=== PATIENT | male | born 1945 | race Caucasian/White ===

== ENCOUNTER 2016-11-13 07:54 | Day surgery (SDC) | payer MEDICARE, BC ==
[~2016-11-13 07:54] MED LIST: EPINEPHrine 1:10,000 1 MG/10 ML Syringe ONE; Midazolam 1 MG/ML 2 ML SDV ONE; Propofol 200 MG/20 ML SDV ONE; fentaNYL 100 MCG/2 ML SDV ONE
[2016-11-13] MEDS ORDERED: Lactated Ringers 1,000 ML IV SCH (08:00)
[2016-11-13] MEDS ORDERED: Sodium Chloride 0.9% 5 ML Syringe FLUSH PRN (08:00)
[2016-11-13] MEDS ORDERED: Propofol 200 MG/20 ML SDV ONE ×2 (08:11→08:49)
[2016-11-13] MEDS ORDERED: Midazolam 1 MG/ML 2 ML SDV ONE (08:49)
[2016-11-13] MEDS ORDERED: fentaNYL 100 MCG/2 ML SDV ONE (08:49)
--- NOTE | 2016-11-13 09:51 | PCM.OPNOTE ---
- General Post-Op/Procedure Note Date of Surgery/Procedure: 11/13/16 Operative Procedure(s): Colonoscopy with polypectomies x4, 2 polyps in the transverse colon and 2 in the ascending colon. Anesthesia Technique: MAC Primary Surgeon: Perlita Fox Complications: None Condition: Good Free Text/Narrative:: INFORMED CONSENT: Patient is here today for elective colonoscopy. All aspects of this procedure have been discussed with the patient. All possible complications also, including possibility of perforation, infection, pain, bleeding and unknown complications. In the event of perforation patient may need to have abdominal exploration, colon resection, colostomy and even was discussed. Anesthetic complications were handled by anesthesia department. The patient understands fully well. Patient did not have any further questions for me at the end of my interview. The patient wishes for me to proceed. PREOPERATIVE DIAGNOSIS/INDICATIONS: [screening] POSTOPERATIVE DIAGNOSIS: [4 polyps identified 2 in the transverse colon and 2 in the descending colon by the cecum. multiple diverticuli seen in the sigmoid colon and the descending colon.] INSTRUMENT USED: Olympus videocolonoscope. ASA CLASSIFICATION: [2] ANESTHESIA: Continuous EKG, oximetry and intermittent blood pressure and respiratory monitoring were performed throughout the procedure. IV Versed and Fentanyl were administered. PROCEDURE PERFORMED: Colonoscopy POSITIONS OF PATIENT: Left lateral. RECTUM: Normal. SIGMOID COLON: Normal. DESCENDING COLON: Normal. SPLENIC FLEXURE: Normal. TRANSVERSE COLON: 2 polyps were identified and removed using the cold biopsy forceps and loop without cautery. HEPATIC FLEXURE: Normal. ASCENDING COLON: 2 polyps were identified and removed using the cold biopsy forceps and a loop doubt cautery. CECUM: Normal. ILEOCECAL VALVE: Normal. BIOPSY: None. TOLERANCE: Excellent. COMPLICATIONS: None. final diagnoses 4 polyps identified 2 in the past as colon and 2 in the ascending colon but the cecum. Multiple diverticuli noted in the sigmoid and descending colon.
[2016-11-13 10:55] VITALS: BP 117/77
== END 2016-11-13 11:20 | disposition home or self-care (01) ==
LOC: KA.SDS 07:54
PROVIDERS: ATTEND Family Medicine
DX: Z12.11 Encounter for screening for malignant neoplasm of colon (principal); D12.2 Benign neoplasm of ascending colon; D12.3 Benign neoplasm of transverse colon; K57.30 Diverticulosis of large intestine without perforation or abscess without bleeding; I25.10 Atherosclerotic heart disease of native coronary artery without angina pectoris; E78.5 Hyperlipidemia, unspecified; Z88.8 Allergy status to other drugs, medicaments and biological substances; Z79.82 Long term (current) use of aspirin; Z79.899 Other long term (current) drug therapy; N40.1 Benign prostatic hyperplasia with lower urinary tract symptoms
CPT/HCPCS: 00810; 45380; J2250; J2704; J3010; J7120; 88305

== ENCOUNTER 2020-07-02 09:36 | Emergency (ER) | payer MEDICARE, BC ==
[2020-07-02] MEDS ORDERED: Nitroglycerin 0.4 MG Tab.SL SL PRN (09:47)
--- NOTE | 2020-07-02 09:49 | EDM.PDOC ---
ED HPI GENERAL MEDICAL PROBLEM - General Chief Complaint: Chest Pain Stated Complaint: CHEST PAIN Time Seen by Provider: 07/02/20 09:36 Source of Information: Reports: Patient - History of Present Illness INITIAL COMMENTS - FREE TEXT/NARRATIVE: Oh, 74-year-old male, presents emergency department per private vehicle after experiencing chest pressure throughout the evening, on and off. States she was able to sleep but chest pressure made it difficult to get to sleep, denying that it woke him up. States when he awoke to go to the bathroom he noted pressure and it was difficult to return to sleep after voiding. Denies any worsening of what is deemed intermittent shortness of breath of a chronic nature. States that he is somewhat inactive due to a bad hip as he is unable to walk very far without discomfort. He denies any fever or chills during this episode. States his pain is 2-3 at this time, never having completely resolved since onset last evening. He is fully compliant with his medications but does not have nitroglycerin. In further discussion during the course of treatment will he admits that he may be had some discomfort Friday night that he attributed to heartburn. Onset Date: 07/01/20 Duration: Hour(s): Location: Reports: Chest Left Chest Pain Score (Numeric/FACES): 5 - Related Data Allergies Allergy/AdvReac Type Severity Reaction Status Date / Time Upixett-Dfz-Ujo Reductase Allergy Muscle Verified 07/02/20 09:54 Inhibitor Aches Home Meds: Home Meds Ascorbic Acid 500 mg PO BEDTIME 11/12/16 [History] Aspirin 81 mg PO BRK 11/12/16 [History] Cholecalciferol (Vitamin D3) [Vitamin D3] 400 units PO DAILY 11/12/16 [History] Finasteride [Proscar] 5 mg PO BEDTIME 11/12/16 [History] Folic Acid 1 mg PO QAM 11/12/16 [History] Methotrexate 10 tab PO ASDIRECTED 11/12/16 [History] Terazosin [Hytrin] 5 mg PO BEDTIME 11/12/16 [History] Glucos Sul 2Kcl/MSM/Chond/C/Mn [Glucosamine Chondroitin Cap] 1 tab PO QAM 07/02/20 [History] polyethylene glycoL 3350 [MiraLAX] 17 gm PO Q2D 07/02/20 [History] Past Medical History HEENT History: Reports: Cataract, Impaired Vision Cardiovascular History: Reports: CAD, High Cholesterol, [place] Respiratory History: Reports: None Gastrointestinal History: Reports: Chronic Constipation, Colon Polyp, Hemorrhoids Genitourinary History: Reports: BPH, Prostate Disorder, Retention, Urinary Musculoskeletal History: Reports: RA, Other (See Below) (Chronic right hip pain which he is not officially) Neurological History: Reports: None Psychiatric History: Reports: None Endocrine/Metabolic History: Reports: Vitamin D Deficiency Hematologic History: Reports: Blood Transfusion(s) Oncologic (Cancer) History: Reports: Basal Cell Carcinoma - Infectious Disease History Infectious Disease History: Reports: Chicken Pox, Mumps - Past Surgical History Cardiovascular Surgical History: Reports: Coronary Artery Bypass GI Surgical History: Reports: Colonoscopy, Hernia, Abdominal Dermatological Surgical History: Reports: Other (See Below) (Biopsy) Social & Family History - Family History Family Medical History: No Pertinent Family History - Tobacco Use Tobacco Use Status *Q: Current Every Day Tobacco User Tobacco Use Within Last Twelve Months: Cigarettes Packs/Tins Daily: 1 Used Tobacco, but Quit: No Smoking Cessation Information Provided To Patient: No - Caffeine Use Caffeine Use: Reports: Coffee ED ROS GENERAL - Review of Systems Review Of Systems: Comprehensive ROS is negative, except as noted in HPI. Constitutional: Reports: No Symptoms Respiratory: Reports: Shortness of Breath Cardiovascular: Reports: Chest Pain ED EXAM, GENERAL - Physical Exam Exam: See Below Free Text/Narrative:: Alert, oriented, reading his pain as a possible 78 pointing to the left chest wall between the nipple and the sternum. HEENT negative to discharge or deformity, there is no tenderness. Moist oral membranes with strong odor of smoking product and poor dentition. Neck is soft supple no lymphadenopathy I do not appreciate JVD nor carotid bruit. No nuchal rigidity is noted. Thorax is raspy I attribute to his smoking habituation with no wheezes nor crackles. He is mildly diminished on the left in comparison to the right. Cardiac is S1-S2 there is no occasional ectopic beat/pause with a grade 1/6 systolic murmur nonradiating. Scars to the chest wall from his CABG and also horizontal incision from his abdominal surgery. Abdomen is soft bowel sounds are present I do not appreciate any megaly nor any tenderness to palpation. Chronic discomfort right hip minimal when supine. There is minimal if any edema to the lower extremities with skin warm and dry. -rectal deferred. #1 Interpretation EKG Date: 07/02/20 Time: 09:44 Rhythm: NSR Rate (Beats/Min): 65 Montgomery: LAD-Left Montgomery Deviation QRS: RBBB ST-T: Normal QT: Prolonged Comparison: Change From Previous EKG Course - Vital Signs Last Recorded V/S: Last Vital Signs Temp 36.1 C 07/02/20 16:36 Pulse 78 07/02/20 16:36 Resp 16 07/02/20 16:36 BP 115/75 07/02/20 16:36 Pulse Ox 98 07/02/20 16:36 - Orders/Labs/Meds Orders: Active Orders 24 hr Category Date Time Status EKG Documentation Completion [RC] ASDIRECTED Care 07/02/20 09:42 Active Peripheral IV Care [RC] . DIRECTED Care 07/02/20 11:04 Ordered Peripheral IV Care [RC] . DIRECTED Care 07/02/20 11:05 Ordered Heparin Sodium Med 07/02/20 10:53 Ordered 4,000 units IVPUSH .BOLUS PRN Heparin Sodium/D5W 250 ml Med 07/02/20 11:15 Ordered IV TITRATE Nitroglycerin 25 MG in D5W @ 10 MCG/MIN (250ml) Premix Med 07/02/20 11:15 Ordered Nitroglycerin/D5W [Nitroglycerin 50 MG/D5W 250 ML] 50 mg in 250 ml IV TITRATE Nitroglycerin [Nitrostat] Med 07/02/20 09:47 Active 0.4 mg SL Q5M PRN Sodium Chloride 0.9% [Normal Saline] 50 ml Med 07/02/20 11:00 Active IV ASDIRECTED Sodium Chloride 0.9% [Saline Flush] Med 07/02/20 11:04 Ordered 10 ml FLUSH Q8HR PRN Sodium Chloride 0.9% [Saline Flush] Med 07/02/20 11:04 Ordered 10 ml FLUSH Q8HR PRN Peripheral IV Insertion Adult [OM.PC] Routine Oth 07/02/20 11:04 Ordered Peripheral IV Insertion Adult [OM.PC] Routine Oth 07/02/20 11:04 Ordered EKG 12 Lead [EK] Urgent Ther 07/02/20 09:42 Ordered Medication Orders Heparin Sodium (Porcine) (Heparin Sodium) 4,000 units IVPUSH .BOLUS PRN PRN Reason: Chest Pain Last Admin: 07/02/20 11:06 Dose: 4,000 units Documented by: RUBEN Sodium Chloride (Normal Saline) 50 mls @ 200 mls/min IV ASDIRECTED [facility] Last Admin: 07/02/20 11:33 Dose: 200 mls/min Documented by: SANDRO Nitroglycerin/Dextrose (Nitroglycerin 50 Mg/D5w 250 Ml) 50 mg in 250 mls @ 3 mls/hr IV TITRATE JOSE FRANCISCO Last Admin: 07/02/20 11:32 Dose: 5 mcg/min, 1.5 mls/hr Documented by: RUBEN Heparin Sodium/Dextrose () 250 mls @ 12.356 mls/hr IV TITRATE JOSE FRANCISCO Last Admin: 07/02/20 11:11 Dose: 12 units/kg/hr, 12.356 mls/hr Documented by: RUBEN Cosigned by: ANICETO Nitroglycerin (Nitrostat) 0.4 mg SL Q5M PRN PRN Reason: Chest Pain Stop: 07/03/20 09:47 Last Admin: 07/02/20 09:53 Dose: 0.4 mg Documented by: RUBEN Sodium Chloride (Saline Flush) 10 ml FLUSH Q8HR PRN PRN Reason: keep vein open Sodium Chloride (Saline Flush) 10 ml FLUSH Q8HR PRN PRN Reason: keep vein open Labs: Laboratory Tests 07/02/20 07/02/20 07/02/20 Range/Units 10:00 10:00 10:00 WBC 8.38 (5.00-10.00) 10^3/uL RBC 4.37 L (4.50-6.00) 10^6/uL Hgb 15.0 (13.0-17.0) g/dL Hct 43.9 (40.0-52.0) % MCV 100.5 H (82.0-92.0) fL MCH 34.3 H (27.0-31.0) pg MCHC 34.2 (32.0-36.0) g/dL RDW 13.6 (11.5-14.5) % Plt Count 225 (150-400) 10^3/uL MPV 9.8 (7.4-10.4) fL Immature Gran % (Auto) 0.2 (0.0-5.0) % Neut % (Auto) 70.8 H (50.0-70.0) % Lymph % (Auto) 17.2 L (20.0-40.0) % [place] % (Auto) 10.5 H (2.0-8.0) % Eos % (Auto) 0.8 L (1.0-3.0) % Baso % (Auto) 0.5 (0.0-1.0) % Neut # (Auto) 5.93 (2.50-7.00) 10^3/uL Lymph # (Auto) 1.44 (1.00-4.00) 10^3/uL Marathon # (Auto) 0.88 H (0.10-0.80) 10^3/uL Eos # (Auto) 0.07 L (0.10-0.30) 10^3/uL Baso # (Auto) 0.04 (0.00-0.10) 10^3/uL Immature Gran # (Auto) 0.02 (0.00-0.50) 10^3/uL APTT 27.1 (22.8-31.4) SEC D-Dimer, Quantitative (<400) ng/mL Sodium 136 (136-145) mmol/L Potassium 4.1 (3.3-5.3) mmol/L Chloride 101 (98-115) mmol/L Carbon Dioxide 23.9 (21.0-32.0) mmol/L Anion Gap 15.2 H (5-15) mmol/L BUN 12 (6-25) mg/dL Creatinine 0.76 (0.51-1.17) mg/dL Est Cr Clr Drug Dosing 93.60 mL/min Estimated GFR (MDRD) > 60 mL/min Glucose 99 (75 - 99) mg/dL Calcium 9.8 (8.7-10.3) mg/dL Total Bilirubin 0.4 (0.2-1.0) mg/dL AST 36 (15-37) U/L ALT 26 (12-78) U/L Alkaline Phosphatase 75 (46-116) IU/L Creatine Kinase 203 (26-276) U/L CK-MB (CK-2) 32.10 H* (0.00-4.30) ng/mL Troponin I 2.21 H* (0.00-0.070) ng/mL B-Natriuretic Peptide 93 (0-100) pg/mL Total Protein 6.6 (6.4-8.2) g/dL Albumin 3.47 (3.00-4.80) g/dL 07/02/20 07/02/20 07/02/20 Range/Units 10:00 16:10 16:10 WBC (5.00-10.00) 10^3/uL RBC (4.50-6.00) 10^6/uL Hgb (13.0-17.0) g/dL Hct (40.0-52.0) % MCV (82.0-92.0) fL MCH (27.0-31.0) pg MCHC (32.0-36.0) g/dL RDW (11.5-14.5) % Plt Count (150-400) 10^3/uL MPV (7.4-10.4) fL Immature Gran % (Auto) (0.0-5.0) % Neut % (Auto) (50.0-70.0) % Lymph % (Auto) (20.0-40.0) % Marathon % (Auto) (2.0-8.0) % Eos % (Auto) (1.0-3.0) % Baso % (Auto) (0.0-1.0) % Neut # (Auto) (2.50-7.00) 10^3/uL Lymph # (Auto) (1.00-4.00) 10^3/uL Marathon # (Auto) (0.10-0.80) 10^3/uL Eos # (Auto) (0.10-0.30) 10^3/uL Baso # (Auto) (0.00-0.10) 10^3/uL Immature Gran # (Auto) (0.00-0.50) 10^3/uL APTT 57.8 H* D (22.8-31.4) SEC D-Dimer, Quantitative 547 H (<400) ng/mL Sodium (136-145) mmol/L Potassium (3.3-5.3) mmol/L Chloride (98-115) mmol/L Carbon Dioxide (21.0-32.0) mmol/L Anion Gap (5-15) mmol/L BUN (6-25) mg/dL Creatinine (0.51-1.17) mg/dL Est Cr Clr Drug Dosing mL/min Estimated GFR (MDRD) mL/min Glucose (75 - 99) mg/dL Calcium (8.7-10.3) mg/dL Total Bilirubin (0.2-1.0) mg/dL AST (15-37) U/L ALT (12-78) U/L Alkaline Phosphatase (46-116) IU/L Creatine Kinase (26-276) U/L CK-MB (CK-2) (0.00-4.30) ng/mL Troponin I 5.40 H* (0.00-0.070) ng/mL B-Natriuretic Peptide (0-100) pg/mL Total Protein (6.4-8.2) g/dL Albumin (3.00-4.80) g/dL Meds: Medications Generic Name Dose Route Start Last Admin Trade Name Freq PRN Reason Stop Dose Admin Heparin Sodium (Porcine) 4,000 units 07/02/20 10:53 07/02/20 11:06 Heparin Sodium IVPUSH 4,000 units .BOLUS PRN Administration Chest Pain Sodium Chloride 50 mls @ 200 mls/min 07/02/20 11:00 07/02/20 11:33 Normal Saline IV 200 mls/min ASDIRECTED JOSE FRANCISCO Administration Nitroglycerin/Dextrose 50 mg in 250 mls @ 3 mls/hr 07/02/20 11:15 07/02/20 11:32 Nitroglycerin 50 Mg/D5w 250 Ml IV 5 mcg/min TITRATE JOSE FRANCISCO 1.5 mls/hr Administration 10 MCG/MIN Heparin Sodium/Dextrose 250 mls @ 12.356 mls/hr 07/02/20 11:15 07/02/20 11:11 IV 12 units/kg/hr TITRATE JOSE FRANCISCO 12.356 mls/hr Administration 12 UNITS/KG/HR Nitroglycerin 0.4 mg 07/02/20 09:47 07/02/20 09:53 Nitrostat SL 07/03/20 09:47 0.4 mg Q5M PRN Administration Chest Pain Sodium Chloride 10 ml 07/02/20 11:04 Saline Flush FLUSH Q8HR PRN keep vein open Sodium Chloride 10 ml 07/02/20 11:04 Saline Flush FLUSH Q8HR PRN keep vein open Discontinued Medications Generic Name Dose Route Start Last Admin Trade Name Rukhsana PRN Reason Stop Dose Admin Heparin Sodium/Dextrose 250 mls @ 1,235.58 mls/hr 07/02/20 11:00 IV TITRATE JOSE FRANCISCO 1,200 UNITS/KG/HR Iopamidol 100 ml 07/02/20 10:47 07/02/20 11:33 Isovue-370 (76%) IV 07/02/20 10:48 75 ml ONETIME ONE Administration - Radiology Interpretation Free Text/Narrative:: 1 view chest shows sternotomy wires and a overall haziness to the left side of the chest in comparison to the right. No acute infiltrate is noted with somewhat flat appearing diaphragms consistent with COPD. Over read pending - Re-Assessments/Exams Free Text/Narrative Re-Assessment/Exam: 07/02/20 10:36 Hypertensive on arrival became mildly hypotensive during the administration of 0.4 sublingual nitroglycerin. Reviewed now blood pressure is trended upward mildly hypertensive systolically with pressure/pain 1 on a scale of 10 at this time. He is resting comfortably awaiting return of laboratory analysis. Had taken ASA this am 07/02/20 11:00 In the discussion with Oh on his findings and the need for further evaluation and treatment, he acknowledges that he may be had some chest pressure Friday night as well attributing that to indigestion. Friday he consumed 6 or 7 drinks rum and coke as well as eating some beef jerky and preservative type food along with seafood. I did inform him of the need of hospitalization for the treatment of this and that we would be contacting appropriate services pending the outcome of the CT scan with contrast of the chest. 07/02/20 12:11 Free Text/Narrative Re-Assessment/Exam: 07/02/20 13:06 Oh is pain-free at this time with a heart rate 80 and regular saturations 99% respiratory rate of 15 and a blood pressure of 126/80. Heparin drip continues and nitroglycerin was titrated up to 10 mics and vitals are holding stable. We are awaiting room assignment at [facility]. 07/02/20 13:07 07/02/20 14:07 Resting comfortably with eyes closed. Respiratory rate 16 with a heart rate of 86 and regular saturations 97% blood pressure 118/76. Awaiting room assignment for the transfer to [facility]. 07/02/20 15:13 Received phone call from [facility]. Room assignment given but yet is not ready to accept patient. Will be advised when report is called as to time we can contact ambulance for transport. Resting comfortably heart rate 69 beats and regular saturation 98% on 2 L nasal cannula, respiratory rate at this time is 11, with a blood pressure of 116/80. 07/02/20 15:36 Report called by nursing staff to [facility]. We are still unable to initiate the physical transfer as bed space has not been confirmed. Secondary of the timing from onset of laboratory analysis and treatment, we will repeat troponin I at this time. We will also obtain current PTT as he has been on the heparin drip now approaching 5 hours. Since we have not been given a release time the 6-hour PTT would come do while in route for the hour and a half transport time to [place]. 07/02/20 17:18 Contact with [facility] hospitalist Dr. Junior advising him of the increase in troponin as well as the PTT being slightly subtherapeutic at the current 12units/kg/h. 1500 unit heparin bolus will be given at this time followed by an increase of the heparin drip to 14 units/kg/h. [facility] paper handler is advised of this change, with no other changes in previous orders. Departure - Departure Time of Disposition: 12:09 Disposition: DC/Tfer to Acute Hospital 02 Condition: Fair Clinical Impression: Acute coronary syndrome, Chest pain at rest, Chronic right hip pain, Elevated troponin I level, AAA (abdominal aortic aneurysm) without rupture, Rheumatoid arthritis, Elevated brain natriuretic peptide (BNP) level - Discharge Information *PRESCRIPTION DRUG MONITORING PROGRAM REVIEWED*: Not Applicable *COPY OF PRESCRIPTION DRUG MONITORING REPORT IN PATIENT EDIN: Not Applicable Referrals: Brit Jaramillo MD [Primary Care Provider] - Forms: ED Department Discharge, Interfacility Transfer EMTALA Additional Instructions: Discussed case with [facility] [address] [facility] via [place] [facility] ambulance as soon its room is available. Sepsis Event Note (ED) - Focused Exam Vital Signs: Vital Signs Temp Pulse Resp BP BP Pulse Ox 07/02/20 16:36 36.1 C 78 16 115/75 98 07/02/20 15:57 80 16 117/73 98 07/02/20 14:49 86 16 117/83 98 07/02/20 14:15 80 16 107/75 98 07/02/20 13:24 80 15 129/83 98 07/02/20 12:33 84 14 129/87 99 07/02/20 12:21 36.3 C 88 15 128/74 98 07/02/20 12:14 92 22 H 146/89 H 96 07/02/20 12:01 85 16 152/91 H 97 07/02/20 11:45 63 16 148/84 H 96 07/02/20 11:30 64 14 168/82 H 97 07/02/20 11:15 82 16 133/83 97 07/02/20 11:00 122/88 07/02/20 10:45 72 16 136/83 97 07/02/20 10:30 85 16 137/78 96 07/02/20 10:15 88 111/86 07/02/20 10:04 35.8 C L 80 18 159/128 H 97 07/02/20 10:03 92 99/65 07/02/20 09:55 84/59 L 07/02/20 09:53 164/87 H - Problem List & Annotations (1) Chest pain at rest SNOMED Code(s): 7065636 Code(s): R07.9 - CHEST PAIN, UNSPECIFIED Status: Acute Priority: High Current Visit: Yes (2) AAA (abdominal aortic aneurysm) without rupture SNOMED Code(s): 49348558 Code(s): I71.4 - ABDOMINAL AORTIC ANEURYSM, WITHOUT RUPTURE Status: Chronic Priority: Medium Current Visit: Yes (3) Rheumatoid arthritis SNOMED Code(s): 00152055 Code(s): M06.9 - RHEUMATOID ARTHRITIS, UNSPECIFIED Status: Chronic Priority: Medium Current Visit: Yes Qualifiers: Rheumatoid arthritis location: hand (4) Elevated troponin I level SNOMED Code(s): 795956423 Code(s): R77.8 - OTHER SPECIFIED ABNORMALITIES OF PLASMA PROTEINS Status: Acute Priority: High Current Visit: Yes (5) Elevated brain natriuretic peptide (BNP) level SNOMED Code(s): 373280889, 005149480 Code(s): R79.89 - OTHER SPECIFIED ABNORMAL FINDINGS OF BLOOD CHEMISTRY Status: Acute Priority: High Current Visit: Yes (6) Chronic right hip pain SNOMED Code(s): 73296547 Code(s): M25.551 - PAIN IN RIGHT HIP; G89.29 - OTHER CHRONIC PAIN Status: Chronic Priority: Medium Current Visit: Yes - Problem List Review Problem List Initiated/Reviewed/Updated: Yes - My Orders Last 24 Hours: My Active Orders 07/02/20 09:42 EKG Documentation Completion [RC] ASDIRECTED EKG 12 Lead [EK] Urgent 07/02/20 09:47 Nitroglycerin [Nitrostat] 0.4 mg SL Q5M PRN 07/02/20 10:53 Heparin Sodium 4,000 units IVPUSH .BOLUS PRN 07/02/20 11:00 Sodium Chloride 0.9% [Normal Saline] 50 ml IV ASDIRECTED 07/02/20 11:04 Peripheral IV Care [RC] . DIRECTED Sodium Chloride 0.9% [Saline Flush] 10 ml FLUSH Q8HR PRN Sodium Chloride 0.9% [Saline Flush] 10 ml FLUSH Q8HR PRN Peripheral IV Insertion Adult [OM.PC] Routine Peripheral IV Insertion Adult [OM.PC] Routine 07/02/20 11:05 Peripheral IV Care [RC] . DIRECTED 07/02/20 11:15 Heparin Sodium/D5W 250 ml IV TITRATE Nitroglycerin 25 MG in D5W @ 10 MCG/MIN (250ml) Premix Nitroglycerin/D5W [Nitroglycerin 50 MG/D5W 250 ML] 50 mg in 250 ml IV TITRATE - Assessment/Plan Last 24 Hours: My Active Orders 07/02/20 09:42 EKG Documentation Completion [RC] ASDIRECTED EKG 12 Lead [EK] Urgent 07/02/20 09:47 Nitroglycerin [Nitrostat] 0.4 mg SL Q5M PRN 07/02/20 10:53 Heparin Sodium 4,000 units IVPUSH .BOLUS PRN 07/02/20 11:00 Sodium Chloride 0.9% [Normal Saline] 50 ml IV ASDIRECTED 07/02/20 11:04 Peripheral IV Care [RC] . DIRECTED Sodium Chloride 0.9% [Saline Flush] 10 ml FLUSH Q8HR PRN Sodium Chloride 0.9% [Saline Flush] 10 ml FLUSH Q8HR PRN Peripheral IV Insertion Adult [OM.PC] Routine Peripheral IV Insertion Adult [OM.PC] Routine 07/02/20 11:05 Peripheral IV Care [RC] . DIRECTED 07/02/20 11:15 Heparin Sodium/D5W 250 ml IV TITRATE Nitroglycerin 25 MG in D5W @ 10 MCG/MIN (250ml) Premix Nitroglycerin/D5W [Nitroglycerin 50 MG/D5W 250 ML] 50 mg in 250 ml IV TITRATE Plan: Discussed case with [facility] [address] [facility] via [place] [facility] ambulance as soon its room is available
[2020-07-02 10:37] LABS: ANION GAP 15.2 mmol/L (5-15); CHLORIDE,CL 101 mmol/L (98-115); SODIUM,NA 136 mmol/L (136-145)
[2020-07-02] MEDS ORDERED: Iopamidol 755 Mg/ML 100 ML Bottle IV ONE (10:47)
[2020-07-02] MEDS ORDERED: Heparin Sodium 5,000 Units/ML Vial IVPUSH PRN (10:53)
[2020-07-02] MEDS ORDERED: Sodium Chloride 0.9% 50 ML IV SCH (11:00)
[2020-07-02] MEDS ORDERED: Heparin Sodium/D5W 250 ML IV SCH ×3 (11:00→17:30)
--- NOTE | 2020-07-02 11:03 | CR ---
[id number] RAD/RAD Chest PA or AP 1V EXAM: SINGLE VIEW CHEST. INDICATION: CHEST PAIN COMPARISON: CORRELATION IS MADE WITH DECEMBER 19, 2011 FINDINGS: The lungs are clear and hyperaerated The cardiomediastinal contour is stable Median sternotomy sutures are seen IMPRESSION: NO PNEUMONIA OR EDEMA Emile Goncalves MD 07/02/20 [id number] Thank you for allowing us to participate in the care of your patient.
[2020-07-02] MEDS ORDERED: Sodium Chloride 0.9% 10 ML Syringe FLUSH PRN ×2 (11:04)
--- NOTE | 2020-07-02 11:40 | CT ---
[id number] CT/CTA Chest Exam: CTA Chest Clinical Data: SHORTNESS OF BREATH ELEVATED D-DIMER CHEST PAIN COMPARISON: CORRELATION IS MADE WITH JANUARY 22, 2012 FINDINGS: There are no pulmonary emboli seen There are minimal bilateral perihilar parenchymal changes There is peribronchial thickening There are diffuse atheromatous calcifications Cardiac surgical changes are identified IMPRESSION: NO PULMONARY EMBOLI Emile Goncalves MD 07/02/20 [id number] Thank you for allowing us to participate in the care of your patient.
[2020-07-02 17:01] VITALS: BP 136/88; PULSE 93
[2020-07-02] MEDS ORDERED: Heparin Sodium 5,000 Units/ML Vial IVPUSH ONE (17:15)
--- OUTSIDE RECORDS SUMMARY | 2020-07-06 08:08 | XMSREPORT ---
:1945 Author Organization [facility] Address [address] [place] [address] Care Team Providers Name Role Phone Juju Jaramillo MD Primary Care Provider Juju Jaramillo MD Attributed Provider Reason for Referral Comprehensive Primary Care Plus (Routine) Status Reason Specialty Diagnoses / Referred By Referred To Contact Procedures Contact New Request CARDIOLOGY Diagnoses NSTEMI (non-ST elevated myocardial infarction) (HCC) Mukul Reaves go Cardiology Issa Monson MD [address] [place] [phone] Phone: Phone: Scheduling Instructions This is an electronic referral. Reason for Visit Reason Comments Auth/Cert Status Reason Specialty Diagnoses / Procedures Referred By Yamilet coles Referred To Contact Encounter Details Date Type Department Care Team Description 07/02/2020 - [facility] Provider, Generic Hosp Pr ocedure NSTEMI (non-ST 07/04/2020 Encounter CENTER [facility]AB Kim Lopes MD [address] [place] [address] [phone] elevated 5225 23 Mukul Jolly MD [address] [place] [address] [place] [id number] [place] [address] Mayo Salvador MD [address] [place], [place] [id number] infarction) ([facility]) [phone] Allergies Active Allergy Reactions Severity Noted Date Comments Hmg-Coa-R Inhibitors Statin Contraindication - 015 Muscle aches Intolerance documented as of this encounter (statuses as of 07/04/2020) Medications Medication Sig Dispensed Refills Start End Date Status Date ascorbic acid Take 1 tablet by 0 Active (EQL VITAMIN C) mouth 1 time per 500 MG TABS day. vitamin D3, Take 400 Units by 0 Active cholecalciferol, mouth 1 time per 400 unit tablet day. polyethylene Take 1 0 Active glycol (MIRALAX) tablespoonful by powder mouth Every other day Glucosamine-Armando Take 1 capsule by 0 Active droit-Vit C-Mn mouth 1 time per (GLUCOSAMINE-CHO day NDROITIN COMPLEX) capsule finasteride Take 1 tablet (5 90 tablet 3 A ctive (PROSCAR) 5 MG mg) by mouth 1 0 tabletIndication time per day s: Benign non-nodular prostatic hyperplasia with lower urinary tract symptoms folic acid 1 mg Take 1 tablet (1 90 tablet 1 Active tabletIndication mg) by mouth 1 0 s: Rheumatoid time per day arthritis involving both hands with positive rheumatoid factor ([facility]) methotrexate 2.5 Take 10 tablets 120 tablet 1 Active MG (25 mg) by mouth 0 tabletIndication 1 time a week On s: Rheumatoid Mondays. arthritis involving both hands with positive rheumatoid factor ([facility]) terazosin Take 1 capsule (5 90 capsule 3 A ctive (HYTRIN) 5 MG mg) by mouth 0 capsuleIndicatio every night at ns: Benign bedtime non-nodular prostatic hyperplasia with lower urinary tract symptoms carVEDilol Take 1 tablet 180 tablet 4 07/09/20 Acti ve (COREG) 6.25 mg (6.25 mg) by 0 21 tabletIndication mouth 2 times a s: NSTEMI day with meals (non-ST elevated myocardial infarction) ([facility]) clopidogrel Take 1 tablet (75 90 tablet 3 Active (PLAVIX) 75 mg mg) by mouth 1 0 tabletIndication time per day s: NSTEMI (non-ST elevated myocardial infarction) ([facility]) aspirin 81 mg Take 1 tablet (81 30 tablet 12 08/04/20 Active chewable mg) by mouth 1 0 20 tabletIndication time per day s: NSTEMI (non-ST elevated myocardial infarction) ([facility]) rosuvastatin Take 1 tablet (5 30 tablet 12 07/09/20 Active (CRESTOR) 5 mg mg) by mouth 1 0 21 tabletIndication time per day s: NSTEMI (non-ST elevated myocardial infarction) ([facility]) aspirin 81 mg Take 81 mg by 0 07/04/20 Di scontinued chewable tablet mouth 1 time per 2 20 (Stop Taking at day. Discharge) documented as of this encounter (statuses as of 07/04/2020) Active Problems Problem Noted Date History of heart artery stent 07/04/2020 Hypertension 07/04/2020 Atherosclerosis of aorta 07/02/2020 Elevated blood pressure reading 07/02/2020 Acute chest pain 07/02/2020 NSTEMI (non-ST elevated myocardial infarction) 020 Chronic idiopathic constipation 05/29/2019 Vitamin D deficiency 11/24/2018 Abdominal aortic aneurysm (AAA) 07/03/2018 Overview: 07/03/18: 3.2 x 3.1 cm. 06/18/2019: 3.7 x 3.7 cm. Chronic allergic rhinitis 06/10/2018 Benign non-nodular prostatic hyperplasia with lower ur inary tract symptoms 06/10/2018 Obesity with body mass index of 30.0-39.9 06/01/2018 Tubular adenoma of colon 11/13/2016 Basal cell carcinoma of skin 04/16/2016 Rheumatoid arthritis involving both hands with positiv e rheumatoid factor 12/12/2008 Pure hypercholesterolemia 11/13/2004 Tobacco dependence CAD (coronary artery disease) documented as of this encounter (statuses as of 07/04/2020) Resolved Problems Problem Noted Date Resolved Date Ulnar neuropathy at elbow of left upper extremity 06/10/2018 05/29/2019 Lesion of nose 03/28/2016 06/01/2018 Pleural effusion on left 01/23/2015 11/24/2018 Skin lesion 02/24/2014 06/01/2018 Pleural effusion 04/15/2013 01/23/2015 Painful respiration 07/25/2010 01/23/2015 Acute bronchitis 06/08/2010 01/23/2015 Epistaxis 05/16/2010 01/23/2015 Encounter for long-term (current) use of other medications 0 01/11/2009 06/01/2018 Coronary atherosclerosis of [place] coronary artery 06/01/2018 Other constipation 11/24/2018 documented as of this encounter (statuses as of 07/04/2020) Immunizations Name Administration Dates Next Due DT (pediatric) 02/03/2001 FLU VACCINE HIGH DOSE 65YR+(Fluzone) 05/18/2019, 06/01/2018, 08/27/2017, 06/23/2013, 06/04/2012 H1N1 Vaccine W/preservative 3yr+ 06/28/2009 Influenza Vaccine,unspecified 05/09/2020, 06/15/2015, 2013, 05/31/2011, 05/16/2010, 05/18/2009 Pneumococcal Conj PCV13 10/29/2016 Pneumococcal Polysaccharide PPSV23 07/24/2011 TD,not adsorbed 02/03/2001 TDAP 02/02/2014 Zoster Live(Zostavax) 02/02/2014 documented as of this encounter Social History Tobacco Use Types Packs/Day Years Used Date Current Every Day Smoker Cigarettes 1 Smokeless Tobacco: Never Used Alcohol Use Drinks/Week oz/Week Comments Yes 2 Standard drinks or equivalent 1.7 Alcohol Habits Answer Date Recorded How often do you have a drink containing alcohol? 2-3 times a week 07/02/2020 How many drinks containing alcohol do you have on a 3 or 4 07/02/2020 typical day when you are drinking? How often do you have six or more drinks on one Monthly 07/02/2020 occasion? Food Insecurity Answer Date Recorded Within the past 12 months, you worried that your food would Never true 04/03/2020 run out before you got money to buy more. Within the past 12 months, the food you bought just didn't N ever true 04/03/2020 last and you didn't have money to get more. Sex Assigned at Date Recorded Not on file documented as of this encounter Last Filed Vital Signs Vital Sign Reading Time Taken Comments Blood Pressure 129/56 07/04/2020 8:00 AM [employer] Pulse 79 07/04/2020 8:00 AM [employer] Temperature 36.3 C (97.4 F) 07/04/2020 8:00 AM [employer] Respiratory Rate 18 07/04/2020 3:00 AM [employer] Oxygen Saturation 97% 07/04/2020 8:00 AM [employer] Inhaled Oxygen Concentration - - Weight 96.2 kg (212 lb 1.3 oz) 07/02/2020 8:00 PM [employer] Height 180.3 cm (5' 11") 07/02/2020 8:00 PM [employer] Body Mass Index 29.58 07/02/2020 8:00 PM [employer] documented in this encounter Functional Status Functional Status Response Date of Assessment Do you have difficulty with walking, balance, climbing Yes 06/28/2020 stairs, or had a fall in the last 3 months? documented as of this encounter Discharge Summaries Mukul Reaves MD - 07/04/2020 11:19 AM CST Discharge Summary Patient ID: Gabriel Montiel is a 74yr male. Attending Physician: Mukul Reaves MD Discharging Provider Specialty: Adult Hospitalist, Internal Medicine Admit Date: 07/02/2020 Discharge Date: 07/04/2020 Primary Care Physician: Brit Jaramillo MD Code Status: Full Code Primary Discharge Diagnoses NSTEMI (non-ST elevated myocardial infarction) (HCC) Principal Problem: NSTEMI (non-ST elevated myocardial infarction) (HCC) Active Problems: Acute chest pain History of heart artery stent Resolved Problems: * No resolved hospital problems. * NSTEMI type I Hx of CAD s/p CABG Acute chest pain, secondary to above -- S/p C 07/03/2020 significant o[place]e-[place] multivessel CAD - LM(70% Distal), LAD(100% Prox), LCx(100%Prox), RCA(90% Prox, mid). Patent ANDERSON-LAD; Sequential SVG-OM1/OM2 had 70% mid & 90% prox stenosis - s/p PCI with 2 overlapping Laurel [place]ina 2.75*38, 3*38 mm; RAG-RCA had 70% distal stenosis - s/p PCI with a 2.5*12 mm Elder MARILYN. New diagnosis hypertension Discharged on Coreg 6.25 mg twice a day, PCP follow-up in a week. Secondary Discharge Diagnoses Patient Active Problem List Diagnosis Pure hypercholesterolemia Rheumatoid arthritis involving both hands with positive rheumatoid factor (HCC) Tobacco dependence CAD (coronary artery disease) Basal cell carcinoma of skin Obesity with body mass index of 30.0-39.9 Chronic allergic rhinitis Benign non-nodular prostatic hyperplasia with lower urinary tract symptoms Abdominal aortic aneurysm (AAA) ([facility]) Vitamin D deficiency Chronic idiopathic constipation Tubular adenoma of colon Atherosclerosis of aorta ([facility]) Elevated blood pressure reading Acute chest pain NSTEMI (non-ST elevated myocardial infarction) ([facility]) History of heart artery stent Hospital Course Mr. Montiel is a 74-year-old male with history significant for CAD s/p CABG, rheumatoid arthritis, tobacco dependence, obesity, BPH, hypertension, hyperlipidemia [facility]. Patient stated that he has been in his usual state of health until the last couple of days where he noticed acute onset of midsternal chest pain, which felt like intense pressure, rated 8 out of 10, would wax and wane but over the last 24 hours has become sick significantly worse and constant. He has a history of CABG in 2002 or 2003 and the patient stated that he has been doing quite well since then. He is independent with his cares and lives at home with his "lady friend". He initially presented to [facility] and blood pressures were noted to be in the 150s over 120s.He was maintaining adequate saturations on room air. Initial EKG did not show any acute ST changes. CBC showed white count of 8.3, hemoglobin 15, MCV of 100.5 and normal platelet count. CMP showed sodium of 136, potassium 4.1, albumin 12, creatinine of 0.76, normal liver enzymes. Troponin was eleva sharif to 2.21 and repeat troponin was elevated to 5.40. D-dimer was elevated to 547. Chest x-ray didnot show any acute cardiopulmonary process. CT was also completed which showed no pulmonary emboli, however there are diffuse atheromatous calcifications noted. The patient was given aspirin 324 mg. He was started on nitroglycerin and heparin drip and transferred to [place] for higher level of care. Cardiology consulted, he underwent a left heart cath on 07/03/2020 : -- S/p LHC 07/03/2020 significant o[place] multivessel CAD - LM(70% Distal), LAD(100% Prox), LCx(100%Prox), RCA(90% Prox, mid). Patent ANDERSON-LAD; Sequential SVG-OM1/OM2 had 70% mid & 90% prox stenosis - s/p PCI with 2 overlapping Elder Catalina 2.75*38, 3*38 mm; RAG-RCA had 70% distal stenosis - s/p PCI with a 2.5*12 mm Elder MARILYN. Echo completed 07/04/2020 : EF 60%, grade 1 diastolic CHF, no regional wall motion abnormalities. Also his blood pressure has been noted to be elevated, no previous history of hypertension, not on any medication for hypertension, Cardiology recommended to start Coreg, blood pressure has been improving. Today 07/04/2020 Vitals have been stable, labs reviewed with a normal creatinine and electrolytes, he denied any chest pain or shortness of breath, PT recommended patient is safe to go home, patient discharged in a stable medical condition with the following discharge recommendations. Follow up appointments: - PCP in 1 week - Cardiac rehab ordered on discharge. - Cardiology follow up in 3 months. Medication changes: - Continue ASA 81 daily - Start Plavix 75 mg daily - He has history of statin intolerance, I restarted him on Crestor 5 mg daily, PCP to consider increase it to high intensity statin based on tolerance. - Coreg 6.25 mg 2 times a day as new medication, PCP follow-up on blood pressure control, if uncontrolled can consider increase Coreg or add lisinopril. Procedures Performed and Findings * No surgery found * Discharge Exam Vital Signs: Temp: 97.4 F (36.3 C) | BP: 129/56 | Pulse: 79 | Resp: 18 | Pain Ratin (out of 10) | Weight: 96.2 kg (212 lb 1.3 oz) | O2 Device: Room Air | SpO2: 97 % Intake and Output: 07/03 0700 - 07/04 0659 In: 653.5 Out: 425 [Urine:425] Physical Exam Constitutional: Appearance: He is not ill-appearing. HENT: Mouth/Throat: Pharynx: No oropharyngeal exudate. Eyes: General: No scleral icterus. Neck: Musculoskeletal: No neck rigidity. Cardiovascular: Rate and Rhythm: Normal rate and regular rhythm. Heart sounds: No murmur. Pulmonary: Effort: No respiratory distress. Abdominal: General: There is no distension. Musculoskeletal: General: No swelling. Skin: Coloration: Skin is not jaundiced. Neurological: General: No focal deficit present. Mental Status: Mental status is at baseline. Psychiatric: Mood and Affect: Mood normal. Consults CONSULT CARDIOLOGY Discharge Disposition ADULT Discharge Planning: Home (1, 2) Discharge Medications Medication List START taking these medications carVEDilol 6.25 mg tablet Commonly known as: COREG Take 1 tablet (6.25 mg) by mouth 2 times a day with meals clopidogrel 75 mg tablet Commonly known as: PLAVIX Take 1 tablet (75 mg) by mouth 1 time per day Start taking on: July 05, 2020 rosuvastatin 5 mg tablet Commonly known as: CRESTOR Take 1 tablet (5 mg) by mouth 1 time per day CONTINUE taking these medications aspirin 81 mg chewable tablet Take 1 tablet (81 mg) by mouth 1 time per day Start taking on: July 05, 2020 EQL Vitamin C 500 mg tablet Generic drug: ascorbic acid finasteride 5 MG tablet Commonly known as: PROSCAR Take 1 tablet (5 mg) by mouth 1 time per day folic acid 1 mg tablet Take 1 tablet (1 mg) by mouth 1 time per day glucosamine-chondroitin complex capsule methotrexate 2.5 MG tablet Take 10 tablets (25 mg) by mouth 1 time a week On Mondays. polyethylene glycol 17 GM/SCOOP powder Commonly known as: MIRALAX Notes to patient: Take for constipation terazosin 5 MG capsule Commonly known as: HYTRIN Take 1 capsule (5 mg) by mouth every night at bedtime vitamin D3 (cholecalciferol) 400 unit tablet Where to Get Your Medications These [facility] [address] [facility] [place], [place] [address] [address] aspirin 81 mg chewable tablet carVEDilol 6.25 mg tablet clopidogrel 75 mg tablet rosuvastatin 5 mg tablet Discharge Instructions See AVS for discharge instructions. Tests Pending at Discharge Follow-Up Scheduled See AVS for Follow up appointments made Medical Decision Making The time spent on discharge coordination was less than 30 minutes. documented in this encounter Medications at Time of Discharge Medication Sig Dispensed Refills Start Date End Date carVEDilol (COREG) Take 1 tablet (6.25 180 tablet 4 07/04/20 20 07/09/2021 6.25 mg mg) by mouth 2 times a tabletIndications: day with meals NSTEMI (non-ST elevated myocardial infarction) (HCC) clopidogrel (PLAVIX) Take 1 tablet (75 mg) 90 tablet 3 06/18 75 mg by mouth 1 time per tabletIndications: day NSTEMI (non-ST elevated myocardial infarction) (HCC) aspirin 81 mg chewable Take 1 tablet (81 mg) 30 tablet 12 08/04/2020 tabletIndications: by mouth 1 time per NSTEMI (non-ST day elevated myocardial infarction) (HCC) finasteride (PROSCAR) Take 1 tablet (5 mg) 90 tablet 3 06/18 5 MG by mouth 1 time per tabletIndications: day Benign non-nodular prostatic hyperplasia with lower urinary tract symptoms folic acid 1 mg Take 1 tablet (1 mg) 90 tablet 1 06/28/2020 tabletIndications: by mouth 1 time per Rheumatoid arthritis day involving both hands with positive rheumatoid factor (HCC) methotrexate 2.5 MG Take 10 tablets (25 120 tablet 1 020 tabletIndications: mg) by mouth 1 time a Rheumatoid arthritis week On Mondays. involving both hands with positive rheumatoid factor (HCC) terazosin (HYTRIN) 5 Take 1 capsule (5 mg) 90 capsule 3 06/18 MG capsuleIndications: by mouth every night Benign non-nodular at bedtime prostatic hyperplasia with lower urinary tract symptoms Glucosamine-Chondroit- Take 1 capsule by 0 Vit C-Mn mouth 1 time per day (GLUCOSAMINE-CHONDROIT IN COMPLEX) capsule polyethylene glycol Take 1 tablespoonful 0 (MIRALAX) powder by mouth Every other day vitamin D3, Take 400 Units by 0 cholecalciferol, 400 mouth 1 time per day. unit tablet ascorbic acid (EQL Take 1 tablet by mouth 0 VITAMIN C) 500 MG TABS 1 time per day. rosuvastatin (CRESTOR) Take 1 tablet (5 mg) 30 tablet 12 07/09/2021 5 mg by mouth 1 time per tabletIndications: day NSTEMI (non-ST elevated myocardial infarction) (HCC) documented as of this encounter Progress Notes Codie Krueger, PHARM D - 07/03/2020 2:45 PM CST11/ 2:45 PM [employer] -- Patient was seen by the pharmacy med reconciliation team and HOME MEDICATIONS have been reconciled and updated to match the patient's home usage. Codie Krueger, PHARM D [employer] Mukul Reaves MD - 07/03/2020 2:17 PM CST Hospital Progress Note Gabriel Montiel is a 74yr old male admitted on 07/02/2020. Assessment / Plan Principal Problem: NSTEMI (non-ST elevated myocardial infarction) (HCC) Active Problems: Acute chest pain Resolved Problems: * No resolved hospital problems. * NSTEMI likely type I Acute chest pain secondary to above CABG in 2007 Appreciate cardiology recommendations, patient underwent angiogram on July 03, 2020 and had multiple stents placed. Continue aspirin statin and Coreg Echo completed on July 02, 2020.Pending Continue to monitor with telemetry Hyperlipidemia continue statin Uncontrolled hypertension: Cardiology started him on Coreg, added lisinopril. Chronic microcytic anemia probably due to chronic alcohol use discussed with patient about alcohol cessation. folate within normal limits , vitamin B12 pending the results. DVT prophylaxis subcu Lovenox Disposition anticipate discharge tomorrow if continued medically stable HPI / History / ROS HPI Patient underwent coronary angiograms this morning , had multiple stents placed, appreciate cardiology recommendations, denied any chest pain or shortness of breath this morning, will continue to monitor BP today and anticipate discharge tomorrow if continued medically stable. Review of Systems Constitutional: Negative for activity change. HENT: Negative. Respiratory: Positive for shortness of breath. Negative for stridor. Cardiovascular: Negative for chest pain and leg swelling. Genitourinary: Negative. Musculoskeletal: Negative. Skin: Negative. Neurological: Negative. Hematological: Negative. Psychiatric/Behavioral: Negative. Physical / Results Current Vital Signs Temp: 96.9 F (36.1 C) BP: 186/98 Weight: 96.2 kg (212 lb 1.3 oz) SpO2: 97 % Resp: 14 Pulse: 80 Current BMI (>50 = increased risk): 29.59 O2 Device: Room Air Pain Ratin Physical Exam Constitutional: Appearance: He is not ill-appearing. HENT: Nose: No congestion. Eyes: General: No scleral icterus. Cardiovascular: Rate and Rhythm: Normal rate and regular rhythm. Heart sounds: No murmur. Pulmonary: Effort: No respiratory distress. Breath sounds: No wheezing. Abdominal: General: There is no distension. Tenderness: There is no abdominal tenderness. Musculoskeletal: General: No swelling. Skin: Coloration: Skin is not jaundiced. Neurological: General: No focal deficit present. Mental Status: Mental status is at baseline. Psychiatric: Mood and Affect: Mood normal. [employer] documented in this encounter H&P Notes Kim Kurtz MD - 07/02/2020 7:29 PM CST Hospital Admission History and Physical Assessment / Plan NSTEMI type I vs type II Hx of CAD s/p CABG Acute chest pain, secondary to above Chest x-ray did not show any acute cardiopulmonary process. CT was also completed which showed no pulmonary emboli, however there are diffuse atheromatous calcifications noted. His chest pain has resolved since arrival. - Can transition off of nitroglycerin drip and use sublingual nitro as needed. - Continue heparin drip - Continuous oximetry and telemetry - Cardiology consult, appreciate recommendations - Echocardiogram - Daily weights, ins and outs - CBC, CMP, BNP, lipid panel, A1c, troponin, mag - Continue daily aspirin, can start on statin and Coreg tomorrow Hyperlipidemia - repeat LDL - apparently has previous intolerance to statins Macrocytic anemia, likely secondary to alcohol use - discussed alcohol reduction - check folate, B12 Chronic Medical Conditions: Tobacco dependence: cessation was discussed with patient BPH: continue Finasteride and Hytrin AAA Obesity Rheumatoid arthritis: continue methotrexate Chronic right hip pain Code: FULL Diet: Heart Healthy, NPO after midnight DVT prophylaxis: therapeutic HPI / History / ROS HPI Mr. Montiel is a 74-year-old male with history significant for CAD s/p CABG, rheumatoid arthritis, tobacco dependence, obesity, BPH, hypertension, hyperlipidemia [facility] and acute chest pain. Patient states that he has been in his usual state of health until the last couple of days where he noticed acute onset of midsternal chest pain, which felt like intense pressure, rated 8 out of 10, would wax and wane but over the last 24 hours has become sick significantly worse and constant. It is nonradiating and resting did not relieve the pain. In fact, the patient states that he was sitting down watching TV when the pain initially started.He has a history of CABG in 2002 or 2003 and the patient states that he has been doing quite well since then. He is independent with his cares and lives at home with his "lady friend". He had some associated nausea and shortness of breath but otherwise denies any diaphoresis, dizziness, palpitations, lower extremity swelling. No changes to urination or bowel movements. The patient states that he has no known exposures to coronavirus. He has been smoking for 45 years initially around 2 packs a day over the last 10 years has cut down to one pack a day. He drinks 3-4 glasses of rum a day as well. No illicit drug use including marijuana. He initially presented to [facility] and blood pressures were noted to be in the 150s over 120s.He was maintaining adequate saturations on room air. Initial EKG did not show any acute ST changes. CBC showed white count of 8.3, hemoglobin 15, MCV of 100.5 and normal platelet count. CMP showed sodium of 136, potassium 4.1, albumin 12, creatinine of 0.76, normal liver enzymes. Troponin was elevated to 2.21 and repeat troponin was elevated to 5.40. D-dimer was elevated to 547. Chest x-ray didnot show any acute cardiopulmonary process. CT was also completed which showed no pulmonary emboli, however there are diffuse atheromatous calcifications noted. The patient was given aspirin 324 mg. He was started on nitroglycerin and heparin drip and transferred to [place] for higher level of care. Since arrival, the patient no longer has any chest pain. History Prior to Admission Medications Prescriptions Last Dose Informant Patient Reported? Taking? Byarmdyjhli-Ayevtoyft-Rfu C-Mn (GLUCOSAMINE-CHONDROITIN COMPLEX) capsule Yes No Sig: Take 1 capsule by mouth 1 time per day ascorbic acid (EQL VITAMIN C) 500 MG TABS Abstracted Yes No Sig: Take 1 tablet by mouth 1 time per day. aspirin 81 mg chewable tablet Abstracted Yes No Sig: Take 81 mg by mouth 1 time per day. finasteride (PROSCAR) 5 MG tablet No No Sig: Take 1 tablet (5 mg) by mouth 1 time per day folic acid 1 mg tablet No No Sig: Take 1 tablet (1 mg) by mouth 1 time per day methotrexate 2.5 MG tablet No No Sig: Take 10 tablets (25 mg) by mouth 1 time a week On Mondays. polyethylene glycol (MIRALAX) powder Yes No Sig: Take 1 tablespoonful by mouth Every other day terazosin (HYTRIN) 5 MG capsule No No Sig: Take 1 capsule (5 mg) by mouth every night at bedtime vitamin D3, cholecalciferol, 400 unit tablet Yes No Sig: Take 400 Units by mouth 1 time per day. Facility-Administered Medications: None Allergies Allergen Reactions Statins [Hmg-Coa-R Inhibitors] Statin Contraindication - Intolerance Muscle aches Past Medical History: Diagnosis Date Abdominal aortic aneurysm (AAA) (HCC) Basal cell carcinoma of skin BPH (benign prostatic hyperplasia) CAD (coronary artery disease) Hyperlipidemia Pleural effusion on left 01/23/2015 Rheumatoid arthritis Vitamin D deficiency Past Surgical History: Procedure Laterality Date CORONARY ARTERY BYPASS GRAFT 2006 ELBOW SURGERY Right ulnar nerve HAND SURGERY Right RECONSTRUCTION HERNIA REPAIR umbilical REPAIR MOHS DEFECT SKIN BIOPSY Family History Problem Relation Age of Onset Not otherwise listed - Cancer Mother Not otherwise listed - Cancer Father Stroke Sister Heart Disease Brother Social History Socioeconomic History Marital status: Single Spouse name: Not on file Number of children: Not on file Years of education: Not on file Highest education level: Not on file Occupational History Occupation: semi-retired maintenance at [employer] Social Needs Financial resource strain: Not on file Food insecurity Worry: Never true Inability: Never true Transportation needs Medical: Not on file Non-medical: Not on file Tobacco Use Smoking status: Current Every Day Smoker Packs/day: 1.00 Types: Cigarettes Smokeless tobacco: Never Used Substance and Sexual Activity Alcohol use: Yes Alcohol/week: 1.7 standard drinks Types: 2 Standard drinks or equivalent per week Review of Systems Review of Systems Constitutional: Positive for activity change and fatigue. Negative for chills and fever. HENT: Negative. Respiratory: Positive for cough and shortness of breath. Chronic productive cough Cardiovascular: Positive for chest pain. Negative for palpitations and leg swelling. Gastrointestinal: Positive for nausea. Negative for abdominal pain and vomiting. Endocrine: Negative. Genitourinary: Negative. Musculoskeletal: Negative. Skin: Negative. Neurological: Negative. Hematological: Negative. Psychiatric/Behavioral: Negative. Physical / Results Current Vital Signs Current Vital Signs Temp: 97.3 F (36.3 C) BP: 145/79 Pulse: 92 O2 Device: Room Air (out of 10) Weight: 96.2 kg (212 lb 1.3 oz) SpO2: 99 % Physical Exam Constitutional: General: He is not in acute distress. Appearance: Normal appearance. He is not toxic-appearing. Comments: Elderly male, resting comfortably in bed HENT: Head: Normocephalic and atraumatic. Right Ear: External ear normal. Left Ear: External ear normal. Mouth/Throat: Mouth: Mucous membranes are moist. Eyes: Pupils: Pupils are equal, round, and reactive to light. Cardiovascular: Rate and Rhythm: Normal rate and regular rhythm. Pulses: Normal pulses. Heart sounds: Normal heart sounds. Pulmonary: Effort: Pulmonary effort is normal. Breath sounds: Normal breath sounds. No wheezing or rales. Abdominal: General: Bowel sounds are normal. There is no distension. Palpations: Abdomen is soft. Tenderness: There is no abdominal tenderness. Musculoskeletal: Normal range of motion. Right lower leg: No edema. Left lower leg: No edema. Skin: General: Skin is warm. Capillary Refill: Capillary refill takes less than 2 seconds. Neurological: General: No focal deficit present. Mental Status: He is alert and oriented to person, place, and time. Mental status is at baseline. Psychiatric: Mood and Affect: Mood normal. Behavior: Behavior normal. Thought Content: Thought content normal. Judgment: Judgment normal. ENTER LABOR SUPERVISOR documented in this encounter Consult Notes Mario Alberto Ball MD - 07/03/2020 8:38 AM CSTAssociated Order(s): CONSULT CARDIOLOGY Cardiology Inpatient Consult Note Name: Gabriel Montiel ROOM/BED: 503/01 PCP: Brit Jaramillo MD Admission date: 07/02/2020 LOS: 0 CONSULT CARDIOLOGY Consult performed by: Mario Alberto Ball MD Consult ordered by: Kim Kurtz MD Impression / Plan Principal Problem: NSTEMI (non-ST elevated myocardial infarction) (HCC) Active Problems: Acute chest pain Resolved Problems: * No resolved hospital problems. * 74-year-old male with a past medical history of CAD s/p stenting and CABG in 2007 anderson to LAD, SVG to RCA and sequential OM1 and OM 2, HTN, HLD, obesity and tobacco use disorder who is being seen int hospital for management of NSTEMI. Chest pain likely anginal in nature, relieved with nitro. Troponin significantly elevated at 5.099 trending up to 5.575. BNP 213. D-dimer positive, CTA negative. Chest x-ray shows no acute findings. EKG shows RBBB, ST depressions in anterior lateral leads. Echo pending. We will plan for left heart cath with possible stent placement. Plan: LHC, possible stent placement Continue heparin drip Monitor on telemetry Echo pending Continue aspirin 81 mg daily Hold statin in setting of statin intolerance Start Coreg 3.25 twice daily SL nitro as needed The patient was seen and discussed with Dr. Mendoza. We reviewed the procedure,risks and goals of coronary angiography including the possibility of stentplacement, including drug eluting stent, with the patient. Among the risks I specifically reviewed were the major complications of , stroke, heart attack and major vascular injury as well as contrast reaction and possible kidney failure. I have discussed the possible need for urgent surgery as a result of a complication. The patient understands, agrees and wishes to proceed. Thank you for consulting us to participate in the care of this patient. Will continue to follow. Mario Alberto Ball MD Internal Medicine Resident-[id number] Pager Number: [phone] 07/03/2020 History Chief Complaint/Presenting Problem: No chief complaint on file. History of Present Illness: Mr. Montile is a 74yr old male with a past medical history of CAD s/p stenting and CABG in 2007 anderson to LAD, SVG to RCA and sequential OM1 and OM2, HTN, HLD, obesity and tobacco use disorder who is being seen in the hospital for evaluation of chest pain. He states that hischest pain began Friday evening. He states the chest pain was substernal pressure like and resolvedafter belching. The pain then resumed on Friday and continued through to Friday morning at which time he presented to the emergency room. He states his chest pain did not fully resolve until hewas started on nitro drip. In the ED troponins were found to be elevated at 5.099, repeat 4.969 and 5.575. BNP was 213. Chestx-ray showed no acute findings. D-dimer was positive, CTA chest performed at OSH negative. EKG showed right bundle branch block which did not meet Guzman's criteria, however did have ST depressions in anterior lateral leads. Previous echo in 2019 showed ejection fraction of 60% with hypokinetic basal inferior and mid inferior wall segments. He was started on heparin drip and sent to [facility] for further evaluation. He denies any other symptoms of ACS such as shortness of breath, lightheadedness, palpitations, nausea, diaphoresis, syncope or presyncope. He is a current everyday smoker smokes approximately 1 pack/day. He has a past medical history of coronary disease with stenting to mid circumflex and CABG x4, ANDERSON to LAD, SVG to RCA and sequential OM1 and OM2 in 2007. He denies any events since this episode. Medical / Surgical Past Medical History: Diagnosis Date Abdominal aortic aneurysm (AAA) (HCC) Basal cell carcinoma of skin BPH (benign prostatic hyperplasia) CAD (coronary artery disease) Hyperlipidemia Pleural effusion on left 01/23/2015 Rheumatoid arthritis Vitamin D deficiency Past Surgical History: Procedure Laterality Date CORONARY ARTERY BYPASS GRAFT 2006 ELBOW SURGERY Right ulnar nerve HAND SURGERY Right RECONSTRUCTION HERNIA REPAIR umbilical REPAIR MOHS DEFECT SKIN BIOPSY Medications Current Facility-Administered Medications Medication Dose Route Frequency Provider Last Rate Last Admin vitamin C (ascorbic acid) chewable tablet 500 mg 500 mg Oral daily Kim Kurtz MD Stopped at 07/03/20 08 finasteride (PROSCAR) tablet 5 mg 5 mg Oral daily Kim Kurtz MD Stopped at 07/03/20 0820 folic acid tablet 1 mg 1 mg Oral daily Kim Kurtz MD Stopped at 07/03/20 0820 methotrexate tablet 25 mg 25 mg Oral 1 time a week Kim Kurtz MD Stopped at 07/03/20 08 polyethylene glycol (MIRALAX) packet 1 packet 1 packet Oral Every other day Kim Kurtz MD Stopped at 07/03/20 0821 terazosin (HYTRIN) capsule 5 mg 5 mg Oral at bedtime Kim Kurtz MD sodium chloride 0.9% flush (adult) 10 mL 10 mL IV 2 times a day and prn Kim Kurtz MD 10 mL at 07/03/20 0809 acetaminophen (TYLENOL) tablet 650 mg 650 mg Oral Every 4 hours prn Kim Kurtz MD senna-docusate sodium (SENOKOT-S;PERICOLACE) tablet 2 tablet 2 tablet Oral 2 times a day prn Kim Kurtz MD And bisacodyl (DULCOLAX) suppository 10 mg 10 mg Rectal 1 time a day prn Kim Kurtz MD And docusate sodium (THEREVAC-SB MINI;ENEMEEZ MINI) 283 MG enema 1 enema 1 enema Rectal 1 time a day prn Kim Kurtz MD ondansetron (ZOFRAN ODT) dispersible tablet 4 mg 4 mg Oral 4 times a day prn Kim Kurtz MD And ondansetron (ZOFRAN) injection solution 4 mg 4 mg IV 4 times a day prn Kim Kurtz MD famotidine (PEPCID) tablet 20 mg 20 mg Oral 2 times a day prn Kim Kurtz MD hEParin (50 units/mL) in D5W premixed IV solution (STANDARD-weight based) 0-50 Units/kg/hr IV Titrate Kim Kurtz MD 37.4 mL/hr at 07/03/20 0323 19 Units/kg/hr at 07/03/20 0323 heparin (porcine) (5000 units/1 mL) IV dose 3,400 Units 35 Units/kg IV PRN per parameter Kim Kurtz MD Or heparin (porcine) (5000 units/1 mL) IV dose 6,900 Units 70 Units/kg IV PRN per parameter Kim Kurtz MD 6,900 Units at 07/03/20 0322 nitroglycerin (NITROSTAT) sublingual tablet 0.4 mg 0.4 mg Sublingual Every 5 minutes prn Kim Kurtz MD 0.4 mg at 07/03/20 0345 aspirin chewable tablet 81 mg 81 mg Oral Daily Kim Kurtz MD Stopped at 07/03/20 0820 Allergies Allergies Allergen Reactions Statins [Hmg-Coa-R Inhibitors] Statin Contraindication - Intolerance Muscle aches Family History Family History Problem Relation Age of Onset Not otherwise listed - Cancer Mother Not otherwise listed - Cancer Father Stroke Sister Heart Disease Brother Social History Social History Socioeconomic History Marital status: Single Spouse name: Not on file Number of children: Not on file Years of education: Not on file Highest education level: Not on file Occupational History Occupation: semi-retired maintenance at [employer] Social Needs Financial resource strain: Not on file Food insecurity Worry: Never true Inability: Never true Transportation needs Medical: Not on file Non-medical: Not on file Tobacco Use Smoking status: Current Every Day Smoker Packs/day: 1.00 Types: Cigarettes Smokeless tobacco: Never Used Substance and Sexual Activity Alcohol use: Yes Alcohol/week: 1.7 standard drinks Types: 2 Standard drinks or equivalent per week Frequency: 2-3 times a week Drinks per session: 3 or 4 Binge frequency: Monthly Drug use: Not on file Sexual activity: Not on file Lifestyle Physical activity Days per week: Not on file Minutes per session: Not on file Stress: Not on file Relationships Social connections Talks on phone: Not on file Gets together: Not on file Attends congregation service: Not on file Active member of club or organization: Not on file Attends meetings of clubs or organizations: Not on file Relationship status: Not on file Intimate partner violence Fear of current or ex partner: Not on file Emotionally abused: Not on file Physically abused: Not on file Forced sexual activity: Not on file Other Topics Concern Transportation Not Asked Stress in your marriage Not Asked Stress with your relationship Not Asked Stress with your family Not Asked Parenting/Being a parent Not Asked Daycare concerns Not Asked Not enough social support Not Asked Housing problems Not Asked Financial stress Not Asked Safety/danger Not Asked Work/job stress Not Asked Legal stress Not Asked Time conflicts (feeling too busy) Not Asked Academic/school stress Not Asked Language difficulties Not Asked Spiritual concerns Not Asked Insurance problems Not Asked The cost of having to take medication Not Asked The costs of buying food/groceries Not Asked Illness of family member/friend/relative Not Asked of a family member/friend/relative Not Asked Violence in your relationship Not Asked Abuse/neglect Not Asked Community stress Not Asked Cultural barriers Not Asked Ability to do self cares Not Asked Social History Narrative Not on file Review of Systems Review of Systems Constitutional: Negative for diaphoresis, fatigue and fever. HENT: Negative for tinnitus. Eyes: Negative for photophobia and visual disturbance. Respiratory: Negative for cough, shortness of breath and wheezing. Cardiovascular: Positive for chest pain. Negative for palpitations and leg swelling. Gastrointestinal: Negative for abdominal pain, constipation, diarrhea, nausea and vomiting. Endocrine: Negative for polyuria. Genitourinary: Negative for difficulty urinating and urgency. Musculoskeletal: Negative for neck pain and neck stiffness. Neurological: Negative for dizziness, weakness, light-headedness, numbness and headaches. Physical Exam Vital signs: Blood pressure 134/97, pulse 71, temperature 97.8 F (36.6 C), resp. rate 14, .3 cm (71"), weight 96.2 kg (212 lb 1.3 oz), SpO2 96 %. Physical Exam Constitutional: He is well-developed, well-nourished, and in no distress. No distress. HENT: Head: Normocephalic and atraumatic. Eyes: Pupils are equal, round, and reactive to light. No scleral icterus. Neck: No JVD present. Cardiovascular: Normal rate and regular rhythm. Exam reveals no gallop and no friction rub. No murmur heard. Pulmonary/Chest: Effort normal. No accessory muscle usage. No respiratory distress. He has no wheezes. He has no rales. Abdominal: Soft. He exhibits no distension. There is no abdominal tenderness. There is no guarding. Musculoskeletal: General: No edema. Neurological: He is alert. No facial motor asymmetry, tongue and uvula midline, speech clear Skin: Skin is warm and dry. No rash noted. He is not diaphoretic. Nursing note and vitals reviewed. Patient Lines/Drains/Airways Status Active Lines Name: Placement date: Placement time: Site: Days: Peripheral IV 07/02/20 Radial Distal;Left 07/02/20 1200 Radial less than 1 Peripheral IV 07/02/20 Forearm Left;Posterior 07/02/20 1200 Forearm less than 1 Labs/Imaging All labs and imaging were reviewed and pertinent labs are discussed in assessment. ENTER LABOR SUPERVISOR Associated attestation - Kadie Mendoza MD - 07/03/2020 6:18 PM CARPENTER LABOR SUPERVISOR I discussed the patient with the resident and personally interviewed and examined the patient. I verified in the medical record all resident documentation/findings, including history, physical exam, and medical decision making, and I agree with the resident's documentation.documented in this encounter Miscellaneous Notes Care Planning - Radha Rosa RN - 07/04/2020 10:57 AM CARPENTER LABOR SUPERVISOR Problem: RISK FOR DECREASED CARDIAC TISSUE PERFUSION Goal: TISSUE PERFUSION: CARDIAC Description: DEFINITION: Adequacy of blood flow through the coronary vasculature to maintain heart function. 1 = Severe deviation from normal range, 2 = Substantial deviation from normal range, 3 = Moderate deviation from normal range, 4 = Mild deviation from normal range, 5 = No deviation from normal range. Outcome: Outcome acceptable for discharge ENTER LABOR SUPERVISOR Cardiac Rehab - Ernestina Vu EP - 07/04/2020 10:07 AM CSTCardiac Rehab Phase 1 Inpatient Note: Diagnosis: NSTEMI/ Stent x2 Pt was sitting up in the chair this am. He notes just completing a walk with nursing staff, no complaints. Pt was introduced to cardiac rehab in [place]. Pt has been through cardiac rehab s/p CABG. Pt is hopefull to DC this day. Assessment/Plan: Tolerates activity well. Encouraged patient to ambulate in hallway 3-4 times daily as tolerated with gradual progression. -Progress as tolerated -Patient referred to outpatient Cardiac Rehab program -Continue to follow until until Discharge -Home activity and exercise teaching completed Recommendation: "Outpatient Cardiac Rehab- [place] Continue Inpatient Cardiac Rehab Plan of Care daily until discharge. Cardiac Rehab Alpha Pager: [phone] hysical Therapy - Nela Curtis PT - 07/04/2020 9:24 AM CST Physical Therapy Acute Inpatient Initial Evaluation ASSESSMENT/RECOMMENDATIONS Gabriel is safely and independently mobile to return home with help from his friend. Will DC PT. Daily activity prescription: up with assist due to lines, etc. Diagnosis: ICD-10-CM 1. NSTEMI (non-ST elevated myocardial infarction) ([facility]) I21.4 CARDIAC REHAB PHASE II Prescription: Eval and Treat Admit Date: 07/02/2020 Pertinent Medical / Surgical History: Patient has a past medical history of Abdominal aortic aneurysm (AAA) (HCC), Basal cell carcinoma of skin, BPH (benign prostatic hyperplasia), CAD (coronary artery disease), Hyperlipidemia, Pleural effusion on left (01/23/2015), Rheumatoid arthritis, and Vitamin D deficiency. Patient has a past surgical history that includes Hand Surgery (Right); Elbow Surgery (Right); coronary artery bypass graft (2005); repair mohs defect; skin biopsy; and hernia repair. Current medical status: See chart Precautions: standard SUBJECTIVE Social History: Patient lives: With friend Home environment: house Steps: 4 at entry Employment: retired Prior Level of Function: Activities of Daily Living: Independent Mobility: Independent History of falls: No Home O2: no Adaptive equipment available: canes Patient Concerns: Eager to go home Pain: R hip chronic Patient Goals: Short term: walk in [place] snf: home today OBJECTIVE Patient seen at bedside. Heart Rate: 90 Oxygen Saturation: 96% on room air Cognition: Patient is alert and oriented times three. Aphasia: no Posture: upright Observation: Pt is noted to limp when walking. States he has chronic pain in his R hip. I offered a cane or walker but he declined. STated he has cane at home if he chose to use it. Strength: Within Functional Limits Except As Indicated Right (LE) Left (LE) ROM WFL WFL Strength Knee Extension 5/5 and Ankle Dorsiflexion 5/5 Knee Extension 5/5 and Ankle Dorsiflexion 5/5 Supervisor [place] Strength: 5/5 Sensation: Grossly intact bilaterally. Tone: Normal. Neglect: no Bed Mobility: Supine to Sit: Independent . Sit to Supine: Not observed Transfers: Sit to/from Stand: Independent Balance: Static Sitting Balance: Good Dynamic Sitting Balance: Good Static Standing: Good Gait: Ambulated ~ 150' with no assistive device and standby supervision Stairs: Ambulated up and down 4 stair steps using 1 hand rail. Education: Patient was educated on safe mobility today through explanation and demonstration. They accepted teaching and verbalized understanding. Today's Treatment Evaluation: Completed Gait trainin minutes Therapeutic exercise: 0 minutes Therapeutic activity: 0 minutes TOTAL TIME-CODED MINUTES: 8 minutes TOTAL TREATMENT TIME: 25 minutes Treatment provided: Yossi, gait PLAN LUZ MARIA PT. Pt is safely mobile to return home with help from friend when medically ready. Precious Curtis PT Alpha pager [phone] linical Team - Jenna Mckenna RN - 07/04/2020 6:12 AM CSTNo acute events during shift. Pt A&O x4, neuros intact. VSS on RA. Pt denies chest pain and SOB t hroughout shift. SBA to the bathroom, IV is saline locked. Cytotoxic precautions in place. Call light within reach will continue to monitor. upplemental Progress Note - Criselda Sloan APRN-CNP - 07/04/2020 12:58 AM CSTPer report, the [place] [facility] [place] for [place] to be there due to the Nitro infusion, but since admission, patient was never on Nitro infusion, had Angio and stents yesterday, VS, asymptomatic, on RA, SpO2 good, saline lock, no IVF, No Heparin infusion, MAP 82. Reportedly, patient's fine for Med-Surg transfer. Plan: 1. Med-Surg transfer and Med-Surg protocol. @0119: Transfer discontinued, will have the day team reassess the situation. are Planning - Jenna Mckenna RN - 07/03/2020 11:39 PM CARPENTER LABOR SUPERVISOR Problem: RISK FOR DECREASED CARDIAC TISSUE PERFUSION Goal: TISSUE PERFUSION: CARDIAC Description: DEFINITION: Adequacy of blood flow through the coronary vasculature to maintain heart function. 1 = Severe deviation from normal range, 2 = Substantial deviation from normal range, 3 = Moderate deviation from normal range, 4 = Mild deviation from normal range, 5 = No deviation from normal range. Outcome: NOC Rating 4 Flowsheets (Taken 07/03/2020 0625) Plan of care reviewed with: Patient Patient specific goal for the day: Pt will have no complaints of chest pain this shift. Patient specific goal for the stay: Pt will have no complaints of chest pain throughout shift and right groin will remain intact. Patient Progress: Pt denies chest pain. Dressing changed on groin site no new drainage. linical Team - Radha Rosa RN - 07/03/2020 5:12 PM CSTPt A&O x4, neuros intact. Angiogram done today, multiple stents placed, pt tolerated procedure we ll. Pt has denied any chest pain today. RA, VSS. Standby assist to bathroom, pt had bm today. Heparin gtt discontinued, NS currently running. Chemo precautions in place. utrition Team - Faviola Rey RD - 07/03/2020 4:31 PM CST Nutrition Note Patient admitted on 07/02/2020 7:06 PM for Principal Problem: NSTEMI (non-ST elevated myocardial infarction) (HCC) Active Problems: Acute chest pain Per EMR Malnutrition Screening Tool completed at admission, pt does not meet screening criteria for an increased potential for developing malnutrition with an MST Score of 0 (Score > 2 considered positive for nutrition risk). Nutrition screening revealed no difficulty eating or significant unintentional weight loss prior to admission. Past medical history noted and is not currently placing pt atincreased nutrition risk. Notified by call center that pt was interested in snacks, will send PM snack. Briefly discussed heart healthy diet with pt - provided with 2 gm sodium restriction and the Cardiac diet handout. Height: 180.3 cm (5' 11") Weight: 96.2 kg (212 lb 1.3 oz) BMI: Body mass index is 29.58 kg/m. Nutrition (From admission, onward) Start Ordered 07/03/20 1410 Diet - Heart Healthy Now Question: Modified Diets Answer: Heart Healthy 07/03/20 1409 Plan to monitor po intake adequacy during admission. If provider feels pt has nutritional concerns,please send Inpatient Dietitian consult with indication for referral. Faviola Rey RD (Nikki), LRD Alpha Pager: #[phone] Phone: [phone] ENTER LABOR SUPERVISOR Physical Therapy - Aleksandra Riojas, PT - 07/03/2020 2:35 PM CSTPatient unavailable in cathead worker. Will follow up tomorrow as appropriate. Aleksandra Riojas PT, DPT Pager [phone] ostOp Progress Note - Adam Ballesteros MD - 07/03/2020 1:51 PM CARPENTER LABOR SUPERVISOR Immediate Post-Cardiac Catheterization Progress Note Att. Phys: Mukul Reaves MD Operative Date: 07/03/2020 Surgeon: Adam Ballesteros MD Hand Umbrella Tipper: none Pre-Operative Diagnosis: NSTEMI, Previous CBAG. Post-Operative Diagnosis: significant [place] multivessel CAD - LM(70% Distal), LAD(100% Prox), LCx(100% Prox), RCA(90% Prox, mid). Patent ANDERSON-LAD; Sequential SVG-OM1/OM2 had 70% mid & 90% prox stenosis - s/p PCI with 2 overlapping Elder [place] 2.75*38, 3*38 mm; RAG-RCA had 70% distal stenosis - s/p PCI with a 2.5*12 mm Elder MARILYN. Anesthesia Type: See [employer] procedure log Operative Procedure: CAG, LHC, Bypass graft study, PCI-RAG-RCA, PCI-SVG-OM1/OM2. Specimens: None Fluids Given: See [employer] procedure log Urine Output: See [employer] procedure log Estimated Blood Loss: 10 mL Drains: none Findings: Coronary anatomy- significant [place] multivessel CAD - LM(70% Distal), LAD(100% Prox), LCx(100% Prox), RCA(90% Prox, mid). Bypass graft study - Patent ANDERSON-LAD; Sequential SVG-OM1/OM2 had 70% mid & 90% prox stenosis - s/p PCI with 2 overlapping Laurel Catalina 2.75*38, 3*38 mm; RAG-RCA had 70% distal stenosis - s/p PCI with a 2.5*12 mm Laurel MARILYN. Left ventriculography- normal EDP 12 mm Hg. Hemodynamics- normal BP. Complications: None. Disposition: ASA indefinitely, Plavix for at least 1 yr. Postoperative Condition: stable The procedure was performed using moderate conscious sedation. The patient was monitored utilizing continuous pulse oximetry, continuous telemetry and intermittent blood pressure measurements throughout the procedure without notable aberration in vitals. Please see the patient's procedure log for fur ther information. Physician start time 12:55 pm. Physician stop time 01:45 pm. are Planning - Radha Rosa RN - 07/03/2020 1:50 PM CARPENTER LABOR SUPERVISOR Problem: RISK FOR DECREASED CARDIAC TISSUE PERFUSION Goal: TISSUE PERFUSION: CARDIAC Description: DEFINITION: Adequacy of blood flow through the coronary vasculature to maintain heart function. 1 = Severe deviation from normal range, 2 = Substantial deviation from normal range, 3 = Moderate deviation from normal range, 4 = Mild deviation from normal range, 5 = No deviation from normal range. 07/03/2020 1349 by Radha Rosa RN Outcome: NOC Rating 3 Flowsheets (Taken 07/03/2020 1349) Initial Score: 3 Target Score: 5 Plan of care reviewed with: Patient Patient specific goal for the day: Pt will have no complaints of chest pain this shift. Patient specific goal for the stay: Pt will d/c with improved cardiac tissue perfusion and decreasedinstances of angina. Achieve goal for stay: By discharge Patient Progress: Pt has denied any chest pain this shift. Went to IR for angiogram. 07/03/2020 1218 by Radha Rosa RN Outcome: NOC Rating 3 Flowsheets (Taken 07/03/2020 1218) Initial Score: 3 Target Score: 5 Plan of care reviewed with: Patient ENTER LABOR SUPERVISOR Physician Pre Procedure Evaluation - Adam Ballesteros MD - 07/03/2020 12:52 PM CSTMODERATE SEDATION: Moderate Sedation Adult Without Short Form Physician Pre- Procedure Sedation Plan (Moderate Sedation) (Note: A complete H&P is required for procedures requiring anesthesia and for inpatients.) Indication for Care: I affirm the indication for the procedure is still present. History & Physical: An up to date H&P has been completed and is available for this procedure. Date of H&P: 07/02/20. Chief Complaint/HPI/Reason for Procedure: NSTEMI. Sedation Plan: Moderate Sedation: ASA Score = 3 Mallampati Class = II (soft palate, uvula, fauces visible) Physician's Affirmation of Discussion: I have explained the known risks, benefits, goals, and alternatives to the procedure or treatment and/or sedation. I affirm the indication for the procedure is still present. I have assessed the patient and vital signs immediately prior to sedation and concur with sedation plan. ase Mgmt - Radha Chen RN - 07/03/2020 10:54 AM CSTCASE MANAGEMENT / SOCIAL SERVICE TRANSITION PLAN - INITIAL ASSESSMENT TRANSITION PLAN: Awaiting Medical Doctor Recommendations for Transition Will Continue to Follow for Support and Progression Towards Final Transition Plan Regarding discharge planning, patient goal home with friend to provide transportation at discharge date. BARRIERS TO TRANSITION: Diagnostic Tests Pending Discharge Needs to be Determined Medical barriers:patient admitted on 07/02/2020 Per chart notes and H&P problems listed include NSTEMI type I vs type II, Hx of CAD s/p CABG, Acute chest pain, Continue heparin drip - Continuous oximetry and telemetry - Cardiology consult, appreciate recommendations - Echocardiogram - Daily weights, inake and output measurements COMMENTS / PATIENT AND FAMILY RESPONSE TO PLAN: This catalytic case operator visited with patient in room. He has been alert and able to answer questions for the initial case management assessment. Patient lives with friend. He lives in a house, layout, 4 steps. He has been independent for activities of daily living. Patient drives, manages own medications. He has not been using assist devices for ambulation. Patient anticipates that goal for discharge will be home with friend to provide transportation at discharge. He had no questions regarding discharge planning. ADMISSION DX: Chest Pressure PATIENT STATUS: OP in a Bed RELEASE OF INFORMATION: No SOURCES OF INFORMATION (See demographics for contact information): Medical Record Nurse: Bedside Patient CURRENT LIVING SITUATION / LEVEL OF ASSISTANCE: Address listed [facility] Lives with friend Independent COMMUNITY SERVICES: None HEALTHCARE DIRECTIVE: Yes-On File and reviewed Significant other health care surrogate, son roxana Durand POWER OF BUY BOAT OPERATOR: None FINANCIAL CONCERNS: No Concerns MEDICARE/MEDICARE PART A & B BCBS [place]/BCBS [place] PRIMARY CARE PHYSICIAN: Yes Brit Jaramillo MD : No IS PATIENT'S ADMISSION ASSOCIATED WITH TIA, ISCHEMIC, OR HEMORRHAGIC STROKE?: No LANGUAGE / COMMUNICATION BARRIERS: No PATIENT / SUBSTITUTE DECISION MAKER GOAL UPON TRANSITION: First Choice: Home: Family/Friend Support ANTICIPATED NEEDS, TRANSITION CHOICES OFFERED: Continue to assess needs, tests pending Home: Family/Friend Support RESOURCE(S) PROVIDED: NA DOES PATIENT HAVE CLOTHING TO WEAR AT DISCHARGE? Yes ANTICIPATED MODE OF TRANSPORT UPON DISCHARGE: Friend car VERIFIED CORRECT PHARMACY IS ENTERED FOR DISCHARGE: Yes - Pharmacy: Past [facility] CURRENT READMISSION RISK SCORE Risk of readmission Chronic pain- no Depression - no Frequent hospitalizations- no Falls- pt said no to this staff member Need assistance- independent for activities of daily living Please refer to readmission risk assessment flowsheet for further details. SIGNED: Radha Chen RN BS Title Checker ICU [facility] [phone] Pager [phone] linical Team - April Tan RN - 07/03/2020 6:11 AM CSTShift Summary: [id number] No acute events this shift. Pt A/O x4. PERRLA. Follows commands in all extremities. VSS RA. BP running 130s-140s/70s-80s. DeniesSOB, but reported feeling like he had heartburn around 0330. ICU nurse consult requested and 12 leadEKG done. Sublingual nitroglycerin given x1. This relieved pt's symptoms. Heparin gtt running @19 units/kg/hr. NPO since midnight. 1 BM. Pt up standby assist. Pt slept most of the night. Will continue to monitor and report to oncoming shift. are Planning - April Tan RN - 07/03/2020 4:51 AM CARPENTER LABOR SUPERVISOR Problem: RISK FOR DECREASED CARDIAC TISSUE PERFUSION Goal: TISSUE PERFUSION: CARDIAC Description: DEFINITION: Adequacy of blood flow through the coronary vasculature to maintain heart function. 1 = Severe deviation from normal range, 2 = Substantial deviation from normal range, 3 = Moderate deviation from normal range, 4 = Mild deviation from normal range, 5 = No deviation from normal range. Flowsheets (Taken 07/03/2020 0449) Initial Score: 3 Target Score: 5 Plan of care reviewed with: Patient Patient specific goal for the day: Pt will not have worsening chest pain throughout the shift. Patient specific goal for the stay: Pt will d/c with improved cardiac tissue perfusion and decreasedinstances of angina. Achieve goal for stay: By discharge Patient Progress: Pt had heartburn tonight. Given sublingual nitroglycerin x1. Symptoms resolved. linical Team - April Tan RN - 07/02/2020 11:32 PM CSTPt admitted to room 503 @1900. Report taken from EMS. Dual skin assessment completed with BARBARA Ortez.No skin issues noted at this time. Will continue to monitor. documented in this encounter Plan of Treatment Date Type Specialty Care Team Description 07/14[facility]2020 [facility] Brit Jaramillo MD [address] [place] [address] [phone] Name Type Priority Associated Diagnoses Date/Ti me EKG CVS STAT 07/03/2020 2:0 9 PM CARPENTER LABOR SUPERVISOR EKG to be done 3 hours post CVS Routine 07/03/2020 2:23 PM CARPENTER LABOR SUPERVISOR coronary intervention Name Type Priority Associated Diagnoses Order S [facility] CLINIC REFERRAL Referral Routine NSTEMI (non-ST elevated O rdered: 07/04/2020 CARDIOLOGY ONE CHART myocardial infarctio n) ([facility]) documented as of this encounter Procedures Procedure Name Priority Date/Time Associated Comments Diagnosis COLLECT AND HOLD Routine 07/04/2020 5:27 Results for this LAVENDER (EDTA) TOP AM CARPENTER LABOR SUPERVISOR procedur e are in TUBE the results section. MAGNESIUM Routine 07/04/2020 5:27 Results for this AM CARPENTER LABOR SUPERVISOR procedure are i n the results section. RENAL FUNCTION PANEL Routine 07/04/2020 5:27 Res ults for this AM CARPENTER LABOR SUPERVISOR procedure are i n the results section. ECHO ADULT COMPLETE Routine 07/03/2020 8:00 Resu lts for this PM CARPENTER LABOR SUPERVISOR procedure are i n the results section. EKG Routine 07/03/2020 2:23 PM CARPENTER LABOR SUPERVISOR PTT Timed Routine 07/03/2020 2:11 Results fo r this PM CARPENTER LABOR SUPERVISOR procedure are i n the results section. ACTIVATED CLOTTING Routine 07/03/2020 1:28 Resul ts for this TIME POCT PM CARPENTER LABOR SUPERVISOR procedure are i n the results section. CARDIAC CATH POSSIBLE Routine 07/03/2020 1:14 Re sults for this ANGIOPLASTY STENT PM CARPENTER LABOR SUPERVISOR procedure are in FITTER ARMAMENT the results section. PTT STAT 07/03/2020 11:26 Results for this AM CARPENTER LABOR SUPERVISOR procedure are i n the results section. PTT Routine 07/03/2020 10:06 Results for this AM CARPENTER LABOR SUPERVISOR procedure are i n the results section. COMPLETE BLOOD COUNT Routine 07/03/2020 10:06 Res ults for this WITHOUT DIFFERENTIAL AM CARPENTER LABOR SUPERVISOR procedu re are in the results section. BASIC METABOLIC PANEL Routine 07/03/2020 10:06 Re sults for this AM CARPENTER LABOR SUPERVISOR procedure are i n the results section. EKG Routine 07/03/2020 3:36 Results for this AM CARPENTER LABOR SUPERVISOR procedure are i n the results section. COLLECT AND HOLD Routine 07/03/2020 2:48 Results for this LAVENDER (EDTA) TOP AM CARPENTER LABOR SUPERVISOR procedur e are in TUBE the results section. PTT Timed Routine 07/03/2020 2:48 Results fo r this AM CARPENTER LABOR SUPERVISOR procedure are i n the results section. TROPONIN I Routine 07/03/2020 2:48 Results for this AM CARPENTER LABOR SUPERVISOR procedure are i n the results section. TROPONIN I Routine 07/02/2020 11:47 Results for this PM CARPENTER LABOR SUPERVISOR procedure are i n the results section. LIPID PANEL Routine 07/02/2020 8:22 Results for this PM CARPENTER LABOR SUPERVISOR procedure are i n the results section. PTT BEVERLY 07/02/2020 8:22 Results for this PM CARPENTER LABOR SUPERVISOR procedure are i n the results section. GLYCATED HEMOGLOBIN Routine 07/02/2020 8:22 Resu lts for this PM CARPENTER LABOR SUPERVISOR procedure are i n the results section. COMPLETE BLOOD COUNT Routine 07/02/2020 7:59 Res ults for this WITHOUT DIFFERENTIAL PM CARPENTER LABOR SUPERVISOR procedu re are in the results section. TROPONIN I Routine 07/02/2020 7:59 Results for this PM CARPENTER LABOR SUPERVISOR procedure are i n the results section. FOLATE, SERUM Routine 07/02/2020 7:59 Results fo r this PM CARPENTER LABOR SUPERVISOR procedure are i n the results section. VITAMIN B12 Routine 07/02/2020 7:59 Results for this PM CARPENTER LABOR SUPERVISOR procedure are i n the results section. MAGNESIUM Routine 07/02/2020 7:59 Results for this PM CARPENTER LABOR SUPERVISOR procedure are i n the results section. COMPREHENSIVE Routine 07/02/2020 7:59 Results fo r this METABOLIC PANEL PM CARPENTER LABOR SUPERVISOR procedure ar e in the results section. BRAIN NATRIURETIC Routine 07/02/2020 7:59 Result s for this PEPTIDE PM CARPENTER LABOR SUPERVISOR procedure are i n the results section. documented in this encounter Results COLLECT AND HOLD LAVENDER (EDTA) TOP TUBE (07/04/2020 5:27 AM CARPENTER LABOR SUPERVISOR) Collect and Hold Comment: RECEIVED [place] [address] Specimen Status CLINIC Specimen Blood - Blood specimen (specimen) Performing Organization Address [facility] Phone Number [address] [place] [address], [place] [address] MAGNESIUM (07/04/2020 5:27 AM CARPENTER LABOR SUPERVISOR) Pathologist Sig [place] [facility] Magnesium 1.9 1.8 - 2.4 mg/dL [address] Specimen Blood - Blood specimen (specimen) Performing Organization Address [facility] Phone Number [place] [address] [address]IN[address] [place] [address], [place] [address] RENAL FUNCTION PANEL (07/04/2020 5:27 AM CARPENTER LABOR SUPERVISOR) Pathologist Sig [place] [facility] Glucose 104 (H) 70 - 100 mg/dL [address] BUN 11 6 - 22 mg/dL [address] Creatinine 0.96 0.80 - 1.[address] mg/dL BUN/Creatinine Ratio 11.5 10.0 - 25.[address] Sodium 140 135 - 145 meq/L [address] Potassium 3.9 3.5 - 5.3 meq/L [address] Chloride 110 99 - 110 meq/L [address] CO2 24 20 - 29 meq/L [address] Anion Gap with K 10 6 - 20 meq/L [address] Calcium 8.8 8.5 - 10.5 mg/dL [address] Phosphorus 3.1 2.5 - 4.5 mg/dL [address] Albumin 3.3 (L) 3.5 - 5.0 g/dL [address] Corrected Calcium 9.4 8.5 - 10.5 mg/dL [address] Age [address] eGFR Non- 77 >=[address] Qatari mL/min/1.73m2 eGFR >90 >=[address] mL/min/1.73m2 Specimen Blood - Blood specimen (specimen) Performing Organization Address [facility] Phone Number [facility] [address] [place] [address] ECHO ADULT COMPLETE (07/03/2020 8:00 PM CARPENTER LABOR SUPERVISOR) Specimen Narrative Performed At This result has an attachment that is no t available. [facility] Patient: GABRIEL MONTIEL MR#: [id number] Exam Date: 07/03/2020 [facility] [address] [place]an[place]hor[place] [address] BP: 126/74 mmHg HR: 71 bpm : 1945 Exam Location: Bedside Height: 71.00 "(180.3 cm) Age: 74 year(s) Patient Room: [facility] Weight: 216 lbs.(97.98 kg) Gender: Male Patient Status: Inpatient BSA: 2.18 m2 Log Chipper: NEFTALY JONES RDCS Reading Physician: KADIE MENDOZA MD Ordering Physician: KIM KURTZ Procedure Indication(s): NSTEMI Examination: TTE Complete 2D(m-mode), Complete Spectral Doppler, Color Doppler Clinical History Comment: S/p CABG (2005) Conclusions Left Ventricle: Normal left ventricular systolic functio n. The ejection fraction is visually estimated to be 60 %. Grade 1 left ventricular diastolic dysfunction. Right Ventricle: Normal right ventricular systolic function. Pulmonary Artery: The tricuspid jet envelope definition is inadequate for estimation of RV systolic pressure. Comparison Study Comparison Date: 06/18/2019 Comparison Study: Transthoracic Echocardiogram There was no significant change from prior echo Findings Left Ventricle: Normal left ventricular size. Mildly inc reased left ventricular wall thickness. Normal left ventricular systolic function. The ejection fraction is visually estimated to be 60 %. Grade 1 left ventricular diastolic dysfunction. Left Atrium: Normal left atrial size. Aortic Valve: The aortic valve is tricuspid. Mild aort ic cuspal thickening. Mild aortic cuspal calcification. Normal aortic cuspal mobility. Trivial aortic regurgitation. No aortic stenosis. Aorta: The sinus of valsalva is normal in size measuring 33.0 mm. There is dilatation of the ascending aorta measuring 42.3 mm. Mitral Valve: Mild mitral leaflet thickening. Trivial mitral regurgitation. No mitral stenosis. IAS: No gross evidence of shunt flow seen; ho wever the possibility of a PFO cannot be completely ruled out. Right Ventricle: Normal right ventricular size. Normal ri ght ventricular systolic function. Normal right ventricular wall thickness. Pulmonary Artery: The tricuspid jet envelope definition is inadequate for estimation of RV systolic pressure. Pulmonary Vein: Pulmonary veins not well visualized. Right Atrium: Normal right atrial size by visual assessment. Tricuspid Valve: Normal tricuspid valve structure. Trivial tricuspid re gurgitation. Pulmonic Valve: Normal pulmonary valve structure. No sig nificant pulmonary regurgitation. No pulmonary stenosis. IVC: Normal IVC size with normal respirophasic changes. Pericardium: No significant pericardial effusion. Measurements Left Ventricle Aortic Valve Label Value Normal Value Label Value Normal Value LVDd, 2D 51.7 mm LVOT Vmax 121 cm/s LVDs, 2D 33.7 mm AV Vmax 171 cm/s IVSd, 2D 10.9 mm LVOTd 23 mm LVPWd, 2D 13.6 mm LVOT VTI 28.55 cm FS, 2D 35 % LVOT PGmax 6 mmHg LVEF, 2D 64 % AV Vmean 122 cm/s LVEDV, 2D 128 ml AV VTI 36.52 cm LVESV, 2D 46 ml AV PGmax 12 mmHg Left Atrium AV PGmean 7 mmHg Label Value Normal Value MARIAH (Vmax) 2.9 cm-sq LA Volume Index 25 ml/m-sq AV Vmax, Caliper 171 cm/s Aorta Mitral Valve Label Value Normal Value Label Value Normal Value Ao Asc 42.3 mm MV E Vmax 60 cm/s Ao Sinus, 2D 33 mm MV A Vmax 92 cm/s Heart Rate MV E/E' lateral 7.57 Label Value Normal Value MV E/E' septal 11.19 Heart Rate 71 bpm MV Dec Time 256 ms MV E' septal 0.1 cm/s MV E' lateral 0.1 cm/s Tricuspid Valve Label Value Nkechi l Value RA Pressure 3 mmHg Pulmonic Valve Label Value Nkechi l Value PV Vmax 105 cm/s PV PGmax 4 mmHg Electronically signed by KADIE MENDOZA MD on 020 at 04:30 PM (No Signature Object) Procedure Note Interface, Inc Results No Pull Forward - 07/03/2020 4:32 PM CARPENTER LABOR SUPERVISOR Patient: GABRIEL MONTIEL MR#: [id number] Exam Date: 07/03/2020 [facility] [address] Transthoracic Echocardiogram [place], [place] [id number] BP: 126/74 mmHg HR: 71 bpm : 1945 Edward elizabeth Location: Bedside Height: 71.00 "(180.3 cm) Age: 74 year(s) Pat ient Room: [facility] Weight: 216 lbs.(97.98 kg) Gender: Male Pat ient Status: Inpatient BSA: 2.18 m2 Log Chipper: NEFTALY MCLAUGHLIN, RDCS Reading Physician: KADIE DÍAZ MD Ordering Physician: KIM HUFFMAN Procedure Indication(s): NSTEMI Examination: TTE Co mplete 2D(m-mode), Complete Spectral Doppler, Color Doppler Clinical History Comment: S/p CABG (2005) Conclusions Left Ventricle: Normal left ventricular systolic functio n. The ejection fraction is visually estimated to be 60 %. Grade 1 left ventricular diastolic dysfunction. Right Ventricle: Normal right ventricular systolic functi on. Pulmonary Artery: The tricuspid jet envelope definition is inadequate for estimation of RV systolic pressure. Comparison Study Comparison Date: 06/18/2019 Comparison Study: Transthoracic Echocard iogram There was no significant change from matt or echo Findings Left Ventricle: Normal left ventricular size. Mildly inc reased left ventricular wall thickness. Normal left ventricular systolic function. The ejection fraction is visually estimated to be 60 %. Grade 1 left ventricular diastolic dysfunction. Left Atrium: Normal left atrial size. Aortic Valve: The aortic valve is tricuspid. Mild aort ic cuspal thickening. Mild aortic cuspal calcification. Normal aortic cuspal mobility. Trivial aortic regurgitation. No aortic stenosis . Aorta: The sinus of valsalva is normal in size measuring 33.0 mm. There is dilatation of the ascending aorta measuring 42.3 mm. Mitral Valve: Mild mitral leaflet thickening. Trivial mitral regurgitation. No mitral stenosis. IAS: No gross evidence of shunt flow seen; ho wever the possibility of a PFO cannot be completely ruled out. Right Ventricle: Normal right ventricular size. Normal ri ght ventricular systolic function. Normal right ventricular wall thickness. Pulmonary Artery: The tricuspid jet envelope definition is inadequate for estimation of RV systolic pressure. Pulmonary Vein: Pulmonary veins not well visualized. Right Atrium: Normal right atrial size by visual asses sment. Tricuspid Valve: Normal tricuspid valve structure. Trivia l tricuspid regurgitation. Pulmonic Valve: Normal pulmonary valve structure. No sig nificant pulmonary regurgitation. No pulmonary stenosis. IVC: Normal IVC size with normal respirophasi c changes. Pericardium: No significant pericardial effusion. Measurements Left Ventricle Aortic Valve Label Value Norm al Value Label Value Normal Value LVDd, 2D 51.7 mm LVOT Vmax 121 cm/s LVDs, 2D 33.7 mm AV Vmax 171 cm/s IVSd, 2D 10.9 mm LVOTd 23 mm LVPWd, 2D 13.6 mm LVOT VTI 28.55 cm FS, 2D 35 % LVOT PGmax 6 mmHg LVEF, 2D 64 % AV Vmean 122 cm/s LVEDV, 2D 128 ml AV VTI 36.52 cm LVESV, 2D 46 ml AV PGmax 12 mmHg Left Atrium AV PGmean 7 mmHg Label Value Norm al Value MARIAH (Vmax) 2.9 cm-sq LA Volume Index 25 ml/m-sq AV Vmax, Caliper 171 cm/s Aorta Mitral Valve Label Value Norm al Value Label Value Normal Value Ao Asc 42.3 mm MV E Vmax 60 cm/s Ao Sinus, 2D 33 mm MV A Vmax 92 cm/s Heart Rate MV E/E' lateral 7.57 Label Value Norm al Value MV E/E' septal 11.19 Heart Rate 71 bpm MV Dec Time 256 ms MV E' septal 0.1 cm/s MV E' lateral 0.1 cm/s Tricuspid Valve Label Value Norm al Value RA Pressure 3 mmHg Pulmonic Valve Label Value Norm al Value PV Vmax 105 cm/s PV PGmax 4 mmHg (No Signature Object) Performing Organization Address [facility] Phone Number [facility] F, [place] PTT (07/03/2020 2:11 PM CARPENTER LABOR SUPERVISOR) Pathologist Sig nature APTT >150 (HH) 24 - 35 secs [place] [address] CLINIC Specimen Blood - Blood specimen (specimen) Performing Organization Address [facility] Phone Number [place] [address] [place], [place] [address] ACTIVATED CLOTTING TIME POCT (07/03/2020 1:28 PM CARPENTER LABOR SUPERVISOR) Pathologist Sig nature Activated Clotting 285 (H) 100 - 150 Secs [facility] POINT OF CARE TESTING Specimen Blood - Blood specimen (specimen) Narrative Performed At DEVICE: [id number] [facility] POINT OF CARE TESTING Performing Organization Address City/State/Zipcode Phone Number [facility] POINT OF [address] [place] [address] CARE TESTING Cardiac Cath Possible Angioplasty Stent Vp Of Technology - Left; With grafts? Yes (07/03/2020 1:14 PM CARPENTER LABOR SUPERVISOR) Specimen Narrative Performed At This result has an attachment that is no t available. [facility] Patient: GABRIEL MONTIEL [facility] Exam Date: 07/03/[address] Exam [place] e: 01:14 PM-01:45 PM [place] [id number] Department of Interventional Cardiology Cardiac Interventional Report, Diagnostic Left Heart C atheterization Report : 1945 Fluoro Time: 14.8 min. Patient Status: Inpatient Age: 74 year(s) Cath Status: Patient Room: [facility] Gender: Male Diagnostic Fuel Cell Builder: ADAM BALLESTEROS MD Dietitian Teacher: ADAM BALLESTEROS MD Indication: Angina/PR: myocardial infa rction without ST elevation (NSTEMI). Diagnostic Conclusions: - There is significant left main plus triple vessel co ronary artery disease Interventional Conclusions: - A successful intervention of the SVG-O M1/OM2 was performed with 2 [place]. 0% residual stenosis post PCI. - RAG-RCA with 1 MARILYN. 0% residual stenosis post PCI) Interventional Summary SVG graft to First obtuse marginal: The initial stenosis was 70 %. A successful Drug Eluting Stent was deployed, and a RESOLUTE ELDER [id number]. . SVG g raft to First obtuse marginal: The initial stenosis was 90 %. A successful Drug Eluting Stent was deploy ed, and a RESOLUTE ELDER [id number]. Free radial graft to Distal right coronary artery: The initial steno sis was 70 %. A successful Drug Eluting Stent was deployed using a RESOLUTE ELDER [id number]. Procedures Performed: Fluoro 0.1-60 Minutes. Medication/Infusi on/Drip. Art Access - R femoral artery*. Elo Femoral Artery Injected for Closure Place. Selective Lt Coronary Angiography. Selec tive Rt Coronary Angiography. Selective Radial Artery Graft. Selective Saphenous Vein Graft Angio. Selective ANDERSON Angio. Activated Clotting Time. Drug Eluting Stent Placement. PTCA. Additional Drug Eluting Stent Placement. Hemostasis with Starclose. Diagnostic Findings: Coronary Angiography The coronary circulation is right dominant. Left Main Left main artery: The segment is large. There is a 70 % stenosis in the distal portion of the segment. Left Anterior Descending Left anterior descending artery: The seg ment is large. Proximal left anterior descending: There is a 100 % stenosis. Circumflex Circumflex artery: The segment is large. There is a 10 0 % stenosis. Right Coronary Right coronary artery: The segment is la rge. Proximal right coronary artery: There is a 90 % stenosis. Mid right coronary artery: There is a 90 % stenosis. Right posterior descending artery: The segment is small. Angiography shows no disease. Right Posterolateral Segment: The segmen t is small. Angiography shows no disease. Ramus Ramus intermedius: The segment is modera tely sized. Angiography shows no disease. Graft Angiography Sequential graft to Second obtuse margin al: There is a 90 % stenosis in the proximal anastomosis portion of the segment. There is a 70 % stenosis in the middle 1/3 portion of the segment. Free radial graft to Right coronary rosas ry: There is a 30 % stenosis in the proximal 1/3 portion of the segment. There is a 70 % stenosis in the distal 1/3 portion of the segment . ANDERSON graft to Left anterior descending artery: Angiogr aphy shows patency. Left Heart Cath Ejection fraction was not calculated. Interventional Findings: Interventional Details SVG graft to First obtuse marginal: The initial stenosis was 70 %. This was an ACC/AHA High/C lesion for intervention. Guidewire crossing was successful. A successful Drug Eluting Stent was depl oyed using a CATH GUIDE 6FR LAUNCHER JR4.0 during setup, a BMW HC .014 J 190CM [id number] during setup, a nd a RESOLUTE ELDER RX2.40R62PJ During Procedure. - The inflation pressure was 18 travis for the duration o f 21.0 seconds. A successful Balloon angioplasty was per formed using a NC EUPHORA RX 3.0X12 During Procedure. - The inflation pressure was 20 travis for the duration o f 13.0 seconds. - The inflation pressure was 22 travis for the duration o f 9.0 seconds. - The inflation pressure was 22 travis for the duration o f 6.0 seconds. Following intervention there is a 0 % re sidual stenosis. There was SHAWN Flow 3 before the procedure and SHAWN Flow 3 following the procedure. No significant vessel dissection noted. There was no perforation at the intervention site. The intervened vessel did not close acutely. SVG graft to First obtuse marginal: The initial stenosis was 90 %. This was an ACC/AHA High/C lesion for intervention. Guidewire crossing was successful. A successful Drug Eluting Stent was depl oyed using a CATH GUIDE 6FR LAUNCHER JR4.0 during setup, a BMW HC .014 J 190CM [id number] during setup, a nd a RESOLUTE ELDER RX3.0X38MM During Procedure. - The inflation pressure was 24 travis for the duration o f 23.0 seconds. Following intervention there is a 0 % re sidual stenosis. There was SHAWN Flow 3 before the procedure and SHAWN Flow 3 following the procedure. No significant vessel dissection noted. There was no perforation at the intervention site. The intervened vessel did not close acutely. Free radial graft to Distal right cox ry artery: The initial stenosis was 70 %. This was an ACC/AHA Non-High/Non C lesion for intervention. Guidewire crossing was succes sful. A successful Drug Eluting Stent was depl oyed using a RESOLUTE ELDER RX2.82H91IW During Procedure. - The inflation pressure was 18 travis for the duration o f 23.0 seconds. Following intervention there is a 0 % re sidual stenosis. There was SHAWN Flow 3 before the procedure and SHAWN Flow 3 following the procedure. No significant vessel dissection noted. There was no perforation at the intervention site. The intervened vessel did not close acutely. Procedure Narrative: Access Right femoral artery: The puncture site was infiltrated with 1 % Lidocaine. Vascular access was obtained using modified seldinger technique and a 5F MICROPUNCTURE SET 45- 754 was advanced into the vessel. The sheath was exchanged from a 5F MICROPUNCTURE SET 45 -754 sheath to a GLIDESHEATH PNCLE TIF TIP 6FR sheath. Hemostasis/Sheath Status: Hemostasis was successful using a staple (STARCLOSE CLOSURE [facility] SE5-6FR 64173-79). Coronary Angiography Left Coronary System: A 6FR JL4 INFINITI was positioned into t he Vessel Ostium under fluoroscopic guidance. Contrast injections were performed using hand injection. Ang iograms were obtained in multiple views. Right Coronary System: A 6FR JR 4 INFINITI was positioned int o the Vessel Ostium under fluoroscopic guidance. Contrast injections were performed using hand injection. Ang iograms were obtained in multiple views. Hemodynamic Impressions General Impressions: Hemodynamic assessm ent demonstrates No systemic hypertension, Left ventricular end diastolic pressure is normal. Hemodynamic Findings Pressures: Baseline: LV pressure 141mm Hg, EDP 12. Baseline: AO pressure 120/56mmHg, mean 99. Hemodynamic Pressures-Phase: Baseline Location : LV Pressure s : 141 mmHg Pressure ed : 12 mmHg HR : 54 bpm Hemodynamic Pressures-Phase: Baseline Location : Ao Pressure s : 120 mmHg Pressure d : 56 mmHg Pressure m : 99 mmHg HR : 58 bpm Flow Calculations, Phase: Baseline VO2: 269.66 ml/min Shunts Acute complication: No complications Contrast: Description Dose Unit HIS No. Reference No. Serial No. Lot No. Omnipaque 230. 000 ml C34 C34 X-Ray: Exam total DAP: 59533.00 cGycm -sq Air Kerma/Exam Total Dose: 1022 mGy Ordering Physician: KADIE MENDOZA MD CCL Hot Plate Plywood Press Feeder: THERESA CROWE RN Scrub: IVELISSE Escobar Monitor: PAULINO CHANDLER IS Valet Cashier: RT RANDY(R) Primary Fuel Cell Builder: KADIE MENDOZA MD Diagnostic Physician Signature: (No Signature Object) Interventional Physician Signature: (No Signature Object) Pre - Pre - Pre - Pre - Pre - Post - Post - Procedure Note Interface, Inc Results No Pull Forward - 07/04/2020 9:54 AM CARPENTER LABOR SUPERVISOR Patient: GABRIEL MONTIEL [facility] Exam Date: 07/03/[id number] Exam Time: 01:14 PM-01:45 PM [place] [address] [facility] tment of Interventional Cardiology Cardiac Interventional Report, Diagnosti c Left Heart Catheterization Report : 1945 Fluoro Time: 14.8 min. Patient Status: Inpatient Age: 74 year(s) Cath Status: Patient Room: [facility] Gender: Male Diagnostic Fuel Cell Builder: ADAM JOSHUA MD Dietitian Teacher: ADAM JOSHUA MD Indication: Angina/PR: myocardial infar ction without ST elevation (NSTEMI). Diagnostic Conclusions: - There is significant left main plus tr iple vessel coronary artery disease Interventional Conclusions: - A successful intervention of the SVG-O M1/OM2 was performed with 2 [place]ina. 0% residual stenosis post PCI. - RAG-RCA with 1 MARILYN. 0% residual stenos is post PCI) Interventional Summary SVG graft to First obtuse marginal: The initial stenosis was 70 %. A successful Drug Eluting Stent was deployed, and a RESOLUTE ELDER RX2.78H95PF. . SVG g raft to First obtuse marginal: The initial stenosis was 90 %. A successful Drug Eluting Stent was deploy ed, and a RESOLUTE ELDER RX3.0X38MM. Free radial graft to Distal right coronary artery: The initial steno sis was 70 %. A successful Drug Eluting Stent was deployed using a RESOLUTE ELDER RX2.08O07BH. Procedures Performed: Fluoro 0.1-60 Minutes. Medication/Infusi on/Drip. Art Access - R femoral artery*. Elo Femoral Artery Injected for Closure Place. Selective Lt Coronary Angiography. Selec tive Rt Coronary Angiography. Selective Radial Artery Graft. Selective Saphenous Vein Graft Angio. Selective ANDERSON Angio. Activated Clotting Time. Drug Eluting Stent Placement. PTCA. Additional Drug Eluting Stent Placement. Hemostasis with Starclo se. Diagnostic Findings: Coronary Angiography The coronary circulation is right domina nt. Left Main Left main artery: The segment is large. There is a 70 % stenosis in the distal portion of the segment. Left Anterior Descending Left anterior descending artery: The seg ment is large. Proximal left anterior descending: There is a 100 % stenosis. Circumflex Circumflex artery: The segment is large. There is a 100 % stenosis. Right Coronary Right coronary artery: The segment is la rge. Proximal right coronary artery: There is a 90 % stenosis. Mid right coronary artery: There is a 90 % stenosis. Right posterior descending artery: The segment is small. Angiography shows no disease. Right Posterolateral Segment: The segmen t is small. Angiography shows no disease. Ramus Ramus intermedius: The segment is modera tely sized. Angiography shows no disease. Graft Angiography Sequential graft to Second obtuse margin al: There is a 90 % stenosis in the proximal anastomosis portion of the segment. There is a 70 % stenosis in the middle 1 /3 portion of the segment. Free radial graft to Right coronary rosas ry: There is a 30 % stenosis in the proximal 1/3 portion of the segment. There is a 70 % stenosis in the distal 1/3 portion of the segment. ANDERSON graft to Left anterior descending a rtery: Angiography shows patency. Left Heart Cath Ejection fraction was not calculated. Interventional Findings: Interventional Details SVG graft to First obtuse marginal: The initial stenosis was 70 %. This was an ACC/AHA High/C lesion for intervention. Guidewire crossing was successful. A successful Drug Eluting Stent was depl oyed using a CATH GUIDE 6FR LAUNCHER JR4.0 during setup, a BMW HC .014 J 190CM [id number] during setup, a nd a RESOLUTE ELDER RX2.17L54SQ During Procedure. - The inflation pressure was 18 travis for the duration of 21.0 seconds. A successful Balloon angioplasty was per formed using a NC EUPHORA RX 3.0X12 During Procedure. - The inflation pressure was 20 travis for the duration of 13.0 seconds. - The inflation pressure was 22 travis for the duration of 9.0 seconds. - The inflation pressure was 22 travis for the duration of 6.0 seconds. Following intervention there is a 0 % re sidual stenosis. There was SHAWN Flow 3 before the procedure and SHAWN Flow 3 following the procedure. No significant vessel dissection noted. There was no perforation at the intervention site. The intervened vessel did not close acutely. SVG graft to First obtuse marginal: The initial stenosis was 90 %. This was an ACC/AHA High/C lesion for intervention. Guidewire crossing was successful. A successful Drug Eluting Stent was depl oyed using a CATH GUIDE 6FR LAUNCHER JR4.0 during setup, a BMW HC .014 J 190CM [id number] during setup, a nd a RESOLUTE ELDER RX3.0X38MM During Procedure. - The inflation pressure was 24 travis for the duration of 23.0 seconds. Following intervention there is a 0 % re sidual stenosis. There was SHAWN Flow 3 before the procedure and SHAWN Flow 3 following the procedure. No significant vessel dissection noted. There was no perforation at the intervention site. The intervened vessel did not close acutely. Free radial graft to Distal right cox ry artery: The initial stenosis was 70 %. This was an ACC/AHA Non-High/Non C lesion for intervention. Guidewire cross ing was successful. A successful Drug Eluting Stent was depl oyed using a RESOLUTE ELDER RX2.15Z74EO During Procedure. - The inflation pressure was 18 travis for the duration of 23.0 seconds. Following intervention there is a 0 % re sidual stenosis. There was SHAWN Flow 3 before the procedure and SHAWN Flow 3 following the procedure. No significant vessel dissection noted. There was no perforation at the intervention site. The intervened vessel did not close acutely. Procedure Narrative: Access Right femoral artery: The puncture site was infiltrated with 1 % Lidocaine. Vascular access was obtained using modified seldinger technique and a 5F MICROPUNCTURE SET 45- 754 was advanced into the vessel. The sheath was exchanged from a 5F MICROPUNCTURE SET 45 -754 sheath to a GLIDESHEATH PNCLE TIF TIP 6FR sheath. Hemostasis/Sheath Status: Hemostasis was successful using a staple (STARCLOSE CLOSURE [facility] SE5-6FR 39462-24). Coronary Angiography Left Coronary System: A 6FR JL4 INFINITI was positioned into t he Vessel Ostium under fluoroscopic guidance. Contrast injections were performed using hand injection. Ang iograms were obtained in multiple views. Right Coronary System: A 6FR JR 4 INFINITI was positioned into the Vessel Ostium under fluoroscopic guidance. Contrast injections were performed using hand injection. Ang iograms were obtained in multiple views. Hemodynamic Impressions General Impressions: Hemodynamic assessm ent demonstrates No systemic hypertension, Left ventricular end diastolic pressure is normal. Hemodynamic Findings Pressures: Baseline: LV pressure 141mmH g, EDP 12. Baseline: AO pressure 120/56mmHg, mean 99. Hemodynamic Pressures-Phase: Baseline Location : LV Pressure s : 141 mmHg Pressure ed : 12 mmHg HR : 54 bpm Hemodynamic Pressures-Phase: Baseline Location : Ao Pressure s : 120 mmHg Pressure d : 56 mmHg Pressure m : 99 mmHg HR : 58 bpm Flow Calculations, Phase: Baseline VO2: 269.66 ml/min Shunts Acute complication: No complicati ons Contrast: Description Dose Un it HIS No. Reference No. Serial No. Lot No. Omnipaque 230.000 ml C34 C34 X-Ray: Exam total DAP: 24468.00 cGycm-sq Air Kerma/Exam Total Dose: 1022 mGy Ordering Physician: KADIE Elizabeth MD CCL Hot Plate Plywood Press Feeder: THERESA CROWE RN Scrub: IVELISSE PETERSEN Monitor: DOMINGA MATAMOROS Valet Cashier: PEREZ ROMAN RT(R) Primary Fuel Cell Builder: KADIE Elizabeth MD Diagnostic Physician Signature: (No Signature Object) Interventional Physician Signature: (No Signature Object) Pre - Pre - Pre - Pre - Pre - Post - Post - Performing Organization Address [facility]/Zipcode Phone Number [facility] [place] PTT (07/03/2020 11:26 AM CARPENTER LABOR SUPERVISOR) Pathologist Sig nature APTT 112 (H) 24 - [address] Specimen Blood - Blood specimen (specimen) Performing Organization Address [facility]/Zipcode Phone Number [place] [address] [facility] [address] BASIC METABOLIC PANEL WITH GFR (07/03/2020 10:06 AM CARPENTER LABOR SUPERVISOR) Pathologist Sig [facility] Glucose 102 (H) 70 - 100 mg/dL [address] BUN 10 6 - 22 mg/dL [address] Creatinine 0.88 0.80 - 1.[address] mg/dL BUN/Creatinine Ratio 11.4 10.0 - 25.[address] Sodium 138 135 - 145 meq/L [address] Potassium 4.5 3.5 - 5.3 meq/L [address] Chloride 107 99 - 110 meq/L [place] [address] [facility] CO2 22 20 - 29 meq/L [address] Anion Gap with K 14 6 - 20 meq/L [address] Calcium 8.8 8.5 - 10.5 mg/dL [address] Age [address] eGFR Non- 85 >=[address] Qatari mL/min/1.73m2 eGFR >90 >=[address] mL/min/1.73m2 Specimen Blood - Blood specimen (specimen) Performing Organization Address [facility] Phone Number [address] [place] [address] COMPLETE BLOOD COUNT WITHOUT DIFFERENTIAL (07/03/2020 10:06 AM CARPENTER LABOR SUPERVISOR) Pathologist Sig nature WBC 8.3 4.0 - 11.0 K/uL [address] RBC 4.07 (L) 4.40 - 5.80 M/uL [address] Hemoglobin 13.9 13.5 - 17.5 g/dL [address] Hematocrit 41.3 40.0 - 50.0 % [address] MCV 101.5 (H) 80.0 - 98.[address] MCH 34.2 (H) 25.5 - 34.[address] MCHC 33.7 31.5 - 36.5 g/dL [address] RDW-CV 14.1 11.5 - 15.5 % [address] RDW-SD 52.1 (H) 35.5 - 50.[address] Platelet Count 187 140 - 400 K/uL [address] MPV 10.4 8.5 - 12.[address] Specimen Blood - Blood specimen (specimen) Performing Organization Address [facility] Phone Number [address] [place] [address] PTT (07/03/2020 10:06 AM CARPENTER LABOR SUPERVISOR) Pathologist Sig nature APTT >150 (HH) 24 - [address] Specimen Blood - Blood specimen (specimen) Performing Organization Address [facility] Phone Number [address] [place] [address] EKG (07/03/2020 3:36 AM CARPENTER LABOR SUPERVISOR) Pathologist Sig nature EKG WAVEFORM TRACEMASTER CLARA LLB Normal sinus rhythm Right bundle branch block Left anterior fascicular block Bifascicular block Ventricular Rate: 70 BPM Atrial Rate: 70 BPM P-R Interval: 162 ms QRS Duration: 154 ms Q-T Interval: 474 ms QTc Calculation(Bazett): 511 ms Calculated P Langdon: 85 degrees Calculated R Langdon: -74 degrees Calculated T Langdon: -62 degrees Specimen Narrative Performed At This result has an attachment that is no t available. Performing Organization Address [facility] Phone Number TRACEMASTARNOLDO ELIZABETH LLB COLLECT AND HOLD LAVENDER (EDTA) TOP TUBE (07/03/2020 2:48 AM CARPENTER LABOR SUPERVISOR) Collect and Hold Comment: RECEIVED [place] [address] Specimen Status CLINIC Specimen Blood - Blood specimen (specimen) Performing [address] [place] [address] TROPONIN I (07/03/2020 2:48 AM CARPENTER LABOR SUPERVISOR) Pathologist Sig nature Troponin I 5.575 (H) 0.000 - 0.028 ng/mL [address] Specimen Blood - Blood specimen (specimen) Performing Organization Address [facility] Phone Number [address] [address] PTT (07/03/2020 2:48 AM CARPENTER LABOR SUPERVISOR) Pathologist Sig nature APTT 57 (H) 24 - [address] Specimen Blood - Blood specimen (specimen) Performing Organization Address [facility] Number [address] [place] [address] TROPONIN I (07/02/2020 11:47 PM CARPENTER LABOR SUPERVISOR) Pathologist Sig nature Troponin I 4.969 (H) 0.000 - 0.028 ng/mL [address] Specimen Blood - Blood specimen (specimen) Performing Organization [facility] Phone Number [address] [place] [address] LIPID PANEL (07/02/2020 8:22 PM CARPENTER LABOR SUPERVISOR) Pathologist Sig nature Cholesterol 245 (H) 100 - 200 mg/dL [facility] Triglyceride 105 50 - 150 mg/dL [facility] HDL 52 40 - 80 mg/dL [facility] LDL 172 (H) 0 - 129 mg/dL [facility] Specimen Blood - Blood specimen (specimen) Performing Organization Address [facility] Phone Number [address] [address] GLYCATED HEMOGLOBIN (07/02/2020 8:22 PM CARPENTER LABOR SUPERVISOR) Pathologist Sig nature Hgb A1C 4.9 <5.7 % [facility] Estimated Average 94 mg/dL [facility] Y Glucose Specimen Blood - Blood specimen (specimen) Narrative Performed At ADA Interpretive Guidelines [facility] When Using HbA1c for Diagnosis Prediabetes 5.7 - 6.4% Diabetes >= 6.5% When Using HbA1c for Monitoring a Person Known to Have Diabetes, < 7% is a reasonable goal for many nonpregna nt adults, < 7.5% should be considered in children and adolescents (<19 years) with type 1 diab etes. ADA Standards of Medical Care in Diabete s - 2019 Performing Organization Address [facility] Phone Number [facility] [address] [place] [address] PTT (07/02/2020 8:22 PM CARPENTER LABOR SUPERVISOR) Pathologist Sig nature APTT 47 (H) 24 - [address] Specimen Blood - Blood specimen (specimen) Performing Organization Address [facility] Phone Number [address] [place] [address] VITAMIN B12 (07/02/2020 7:59 PM CARPENTER LABOR SUPERVISOR) Pathologist Sig nature Vitamin B12 470 200-1,000 pg/mL [facility] Specimen Blood - Blood specimen (specimen) Performing Organization Address [facility] Phone Number [address] [address] [phone] FOLATE, SERUM (07/02/2020 7:59 PM CARPENTER LABOR SUPERVISOR) Pathologist Sig [employer] Folate Serum 15.6 2.8 - 16.0 ng/mL [facility] Specimen Blood - Blood specimen (specimen) Performing Organization Address [facility] Phone Number [address] [address] MAGNESIUM (07/02/2020 7:59 PM CARPENTER LABOR SUPERVISOR) Pathologist Sig nature Magnesium 1.8 1.8 - 2.4 mg/dL [address] Specimen Blood - Blood specimen (specimen) Performing Organization Address [facility] Phone Number [place] [address] [place] [address] TROPONIN I (07/02/2020 7:59 PM CARPENTER LABOR SUPERVISOR) Pathologist Sig [facility] Troponin I 5.099 (H) 0.000 - 0.028 ng/mL [address] Specimen Blood - Blood specimen (specimen) Performing Organization Address [facility] Phone Number [place] [address] [place] [address] BRAIN NATRIURETIC PEPTIDE (07/02/2020 7:59 PM CARPENTER LABOR SUPERVISOR) Pathologist Sig [facility] BNP 213 (H) 0 - 100 pg/mL [address] Specimen Blood - Blood specimen (specimen) Performing Organization Address [facility] Phone Number [place] [address] [place] [address] COMPREHENSIVE METABOLIC PANEL (07/02/2020 7:59 PM CARPENTER LABOR SUPERVISOR) Pathologist Sig [facility] Glucose 94 70 - 100 mg/dL [address] BUN 11 6 - 22 mg/dL [place] [address] [facility] Creatinine 0.95 0.80 - 1.[address] mg/dL BUN/Creatinine Ratio 11.6 10.0 - 25.[address] Sodium 139 135 - 145 meq/L [address] Potassium 4.1 3.5 - 5.3 meq/L [address] Chloride 105 99 - 110 meq/L [address] CO2 25 20 - 29 meq/L [address] Anion Gap with K 13 6 - 20 meq/L [place] [address] [facility] Calcium 9.5 8.5 - 10.5 mg/dL [address] Protein Total 6.5 6.0 - 8.2 g/dL [address] Albumin 3.8 3.5 - 5.0 g/dL [place] [address] [facility] Alkaline Phosphatase 73 30 - 150 U/L [place] [address] [facility] AST - SGOT 52 (H) 0 - 35 U/L [address] ALT - SGPT 20 0 - 55 U/L [address] Bilirubin Total 0.6 0.2 - 1.2 mg/dL [address] Corrected Calcium 9.7 8.5 - 10.5 mg/dL [address] Age [address] eGFR Non- 77 >=[address] Qat[place] mL/min/1.73m2 eGFR >90 >=[address] mL/min/1.73m2 Specimen Blood - Blood specimen (specimen) Performing Organization Address [facility] Phone Number [address] [place] [address], [place] [address] COMPLETE BLOOD COUNT WITHOUT DIFFERENTIAL (07/02/2020 7:59 PM CARPENTER LABOR SUPERVISOR) [facility] WBC 10.3 4.0 - 11.0 K/uL [address] RBC 4.21 (L) 4.40 - 5.80 M/uL [address] Hemoglobin 14.6 13.5 - 17.5 g/dL [address] Hematocrit 42.9 40.0 - 50.0 % [address] MCV 101.9 (H) 80.0 - 98.[address] MCH 34.7 (H) 25.5 - 34.[address] MCHC 34.0 31.5 - 36.5 g/dL [address] RDW-CV 14.0 11.5 - 15.5 % [address] RDW-SD 51.9 (H) 35.5 - 50.[address] Platelet Count 233 140 - 400 K/uL [address] MPV 9.9 8.5 - 12.[address] Specimen Blood - Blood specimen (specimen) Performing Organization Address [facility] Phone Number [address] [place] [address], [place] [address] documented in this encounter Visit Diagnoses Diagnosis NSTEMI (non-ST elevated myocardial infar ction) ([facility]) - Primary Acute myocardial infarction, subendocard ial infarction, episode of care unspecified Acute chest pain Chest pain, unspecified History of heart artery stent Postsurgical percutaneous transluminal c oronary angioplasty status Hypertension Unspecified essential hypertension documented in this encounter Discharge Diagnoses Not on filedocumented in this encounter Administered Medications Medication Order MAR Action Action Date Dose Rate Site acetaminophen (TYLENOL) tablet 650 mg 650 mg, Oral, Every four hours prn, Starting 07/03 at 1408, Until Discontinued, mild pain, Post-Procedure (Cath), Pain S tay 1 - 3, aspirin chewable tablet 81 mg Given 07/04/2020 9:15 AM [employer] 81 mg 81 mg, Oral, Daily, First dose on Fri07/04/20 at 0900, Until Discontinued, Post-Procedure (Cath) bisacodyl (DULCOLAX) suppository 10 mg 10 mg, Rectal, One time a day prn, Starting Sun at 1956, Until Discontinued, constipation, Use SECOND for constipatio n. If patient cannot take oral medications, use first for constipation., carVEDilol (COREG) tablet 6.25 mg Given 07/04/2020 9:15 AM [employer] 6.25 mg 6.25 mg, Oral, Two times a day with meals, First dose (after last modification) on Fri07/03/20 at 1730, Until Discontinued, Take with food. Hold for SBP less than 90 Hold for HR less than 55, Given 07/03/2020 5:30 PM [employer] 6.25 mg clopidogrel (PLAVIX) tablet 75 mg Given 07/04/2020 9:15 AM [employer] 75 mg 75 mg, Oral, Daily, 365 doses, First dose on Fri07/04/20 at 0900, Last dose on Fri07/03/21 at 0900, Post-Procedure (Cath) docusate sodium (THEREVAC-SB MINI;ENEMEE Z MINI) 283 MG enema 1 enema 1 enema, Rectal, One time a day prn, Starting Sun 06/18 01/04 at 1957, Until Discontinued, constipation, Use THIRD for constipation - if no BM 8 hours after dulcolax suppository. If patient cannot take oral medi cations, use second for constipation., famotidine (PEPCID) tablet 20 mg 20 mg, Oral, Two times a day prn, Starting Sun 0 at 195, Until Discontinued, other (Specify), acid reflux, Use SECOND for acid reflux if inadequate response to calcium carbonate (Tums) after 60 minutes. If inadequate response to famotidine (Pepcid) in 60 mi nutes, may proceed to next choice option or, if no other options, contact provider., fentaNYL 100 mcg/2 mL preservative free Given 07/03/2020 12:52 P M [employer] 50 mcg injection solution 25-300 mcg 25-300 mcg, IV, PRN per parameter, Starting Fri07/03/20 at 1104, Until Discontinued, other (Specify), sedation for cardiac catheterization, 6 mL, Pre-Procedure (Cath), procedural area to release, For sedation under direction provider privileged to perform sedation. Do not give on the floor., finasteride (PROSCAR) tablet 5 mg Given 07/04/2020 9:15 AM [employer] 5 mg 5 mg, Oral, DAILY, First dose on Fri07/03/20 at 0900, Until Discontinued, This medication is a low risk cytotoxic drug. Wear 2 pairs of chemo gloves for administration. If unable to administer dose intact - contact pharmacy for other administration options. Dispose of empty packages in the yellow cytotoxic waste. Dispose of unused or partial packages in the black waste containers., Given 07/03/2020 3:29 PM [employer] 5 mg folic acid tablet 1 mg Given 07/04/2020 9:15 AM [employer] 1 mg 1 mg, Oral, DAILY, First dose on Fri07/03/20 at 0900, Until Discontinued Given 07/03/2020 3:29 PM [employer] 1 mg hydrALAZINE (APRESOLINE) injection solution Given 07/03/2020 3:16 PM [employer] 10 mg 10 mg 10 mg, IV, Every six hours prn, Starting Fri07/03/20 at 1350, Until Discontinued, specified parameter, to keep SBP less than 150 mmHg, 0.5 mL, Repeat in 20 minutes if needed. If not successful after two doses, contact the interventional cardiology team., Given 07/03/2020 2:34 PM [employer] 10 mg lidocaine 1%-EPINEPHrine 1:200,000 (XYLO CELINA-EPINEPHRINE) injection solution 1 mL 1 mL, Subcutaneous, PRN per parameter, Starting Fri at 1408, Until Discontinued, other (Specify), oozing at groin puncture site, 30 mL, Post-Procedure (Cath), Contact physician/JARAD prior to i njecting. If oozing at groin puncture site occurs, designated nursing staff may ass ess and inject. Clean site with Hibiclens sponge. Using aseptic technique, inject 1 mL into the tissue surrounding the tract of the groin puncture site in a circular fashion to a max dose of 10 mL. Aspirate prior to each injection., lisinopril (PRINIVIL, ZESTRIL) tablet 10 mg Given 07/04/2020 9:15 AM [employer] 10 mg 10 mg, Oral, Daily, First dose on Fri07/03/20 at 1440, Until Discontinued, Hold for SBP less than 100, Given 07/03/2020 3:13 PM [employer] 10 mg methotrexate tablet 25 mg Given 07/03/2020 8:55 PM [employer] 25 mg 25 mg, Oral, One time a week, First dose on Fri07/03/20 at 0600, Until Discontinued, This medication is a low risk cytotoxic drug. Wear 2 pairs of chemo gloves for administration. If unable to administer dose intact - contact pharmacy for other administration options. Dispose of empty packages in the yellow cytotoxic waste. Dispose of unused or partial packages in the black waste containers., midazolam (VERSED) injection solution 0.5-10 Given 0 12:52 PM [employer] 2 mg mg 0.5-10 mg, IV, PRN per parameter, Starting Fri07/03/20 at 1104, Until Discontinued, other (Specify), sedation for cardiac catheterization, 10 mL, Pre-Procedure (Cath), procedural area to release, For sedation under direction provider privileged to perform sedation Do not give on the floor, nitroglycerin (NITROSTAT) sublingual tab let 0.4 mg 0.4 mg, Sublingual, Every five minutes p rn, Starting Fri07/03/20 at 1408, Until Discontinued, chest pain, Post-Procedure (Cath), At onset of chest pain, dissolve one tablet under tongue. May repeat ever y 5 minutes for 3 doses. Do not crush or chew., ondansetron (ZOFRAN ODT) dispersible tab let 4 mg 4 mg, Oral, Four times a day prn, Starting Sun 0 at 1957, Until Discontinued, nausea, vomiting, Use FIRS T for nausea / vomiting. If ineffective after 30 minutes use ondansetron IV, ondansetron (ZOFRAN) injection solution 4 mg 4 mg, IV, Four times a day prn, Starting 07/02/20 at 1957, Until Discontinued, nausea, vomiting, 2 mL, Use SECOND for n ausea / vomiting. If ineffective after 30 minutes and ondansetron ODT used, call p [email or web address] for alternative. If preference is to further dilute for IV administration: First draw up patient-specific dose, then dilute to 10 mL with 0.9% sodium chloride., senna-docusate sodium (SENOKOT-S;PERICOL SEAN) tablet 2 tablet 2 tablet, Oral, Two times a day prn, Starting Sun 06/18 01/04 at 1957, Until Discontinued, constipation, Use FIRST fo r constipation unless patient cannot take oral medications., sodium chloride 0.9% flush (adult) 10 mL Given 07/04/2020 9:16 AM [employer] 10 mL 10 mL, IV, Two times a day and prn, First dose on Fri07/02/20 at 2100, Until Discontinued, 10 mL, Flush IV line as scheduled and as often as necessary before and after meds., Given 07/03/2020 9:00 PM [employer] 10 mL Given 07/03/2020 8:09 AM [employer] 10 mL terazosin (HYTRIN) capsule 5 mg Given 07/03/2020 8:50 PM [employer] 5 mg 5 mg, Oral, Bedtime, First dose on Fri07/03/20 at 2100, Until Discontinued vitamin C (ascorbic acid) chewable tablet Given 07/04/2020 9:16 AM [employer] 500 mg 500 mg 500 mg, Oral, DAILY, First dose on Fri07/03/20 at 0900, Until Discontinued Medication Order MAR Action Action Date Dose Rate Site aspirin tablet 325 mg Given 07/03/2020 12:00 PM [employer] 325 mg 325 mg, Oral, One time, 1 dose, Fri07/03/20 at 1150, Prep Orders (Cath) if inpatient - floor RN to release, Patient to receive 325 mg aspirin prior to procedure If patient currently taking aspirin at home and has not taken their dose today prior to procedure: hold this dose and administer 325 mg, clopidogrel (PLAVIX) tablet 600 mg Given 07/03/2020 1:46 PM [employer] 600 mg 600 mg, Oral, Administer in [employer], 1 dose, Fri07/03/20 at 1350, Under the direction of the provider in CCL. Do not give on the floor., hEParin (50 units/mL) in Rate Change 07/03/2020 3:23 AM 19 Units/ kg/hr 37.4 mL/hr D5W premixed IV solution [employer] (STANDARD-weight based) 0-50 Units/kg/hr 98.3 kg (0-98.3 mL/hr), IV, at 0-98.3 mL/hr, Titrate, Starting 07/02/20 at 2100, Until 07/03/20 at 1430, 500 mL, Start initial infusion at 15 units/kg/hr. Notify physician if initial infusion exceeds 1,500 units/hr. Adjust heparin infusion based on sliding scale: * aPTT less than 60 sec ------ Give 70 units/kg IV bolus and add 4 units/kg/hr to current rate * aPTT 60-69.9 sec Give 35 units/kg IV bolus and add 2 units/kg/hr to current rate * aPTT 70-120.9 sec No change (therapeutic) * aPTT 121-135.9 sec Subtract 2 units/kg/hr from current rate * aPTT 136-149.9 sec --------- Hold heparin for 1 hour and subtract 3 units/kg/hr from current rate * aPTT 150 sec or greater - Redraw STAT aPTT and hold heparin. Draw hourly aPTT using routine specified time until less than 150 sec, then restart heparin infusion at 3 units/kg/hr less than the previous rate, give NO BOLUS and resume every 6 hour aPTT. AFTER PROCEDURE: When restarting infusion after it's been held for a procedure, restart infusion at "starting" dose of 15 units/kg/hr and follow titration orders. IF infusion was running at less than 15 units/kg/hr prior to procedure, restart at that rate and follow titration orders., New Bag 07/02/2020 8:40 PM [employer] 15 Units/kg/hr 29.5 mL/hr heparin (porcine) (5000 units/1 mL) IV Given 0 3:22 AM [employer] 6,900 Units dose 6,900 Units 6,900 Units (rounded from 6,881 Units = 70 Units/kg 98.3 kg), IV, PRN per parameter, Starting 07/02/20 at 1957, Until Fri07/03/20 at 1431, other (Specify), * aPTT less than 60 seconds - Give 70 units/kg IV bolus and add 4 units/kg/hr to current rate of infusion, 2 mL, Supplemental bolus doses based on aPTT: * aPTT less than 60 seconds - Give 70 units/kg IV bolus and add 4 units/kg/hr to current rate of infusion. * aPTT 60 to 69.9 seconds - Give 35 units/kg IV bolus and add 2 units/kg/hr to current rate of infusion. Round to the nearest 100 units up to a maximum bolus of heparin 7500 units , heparin (porcine) injection solution Given 07/03/2020 1:[address] 6,000 Units 0-12,000 Units 0-12,000 Units, IV, Administer in [employer], 1 dose, Fri07/03/20 at 1345, 12 mL, Under the direction of the provider in CCL. Do not give on the floor., iohexol (OMNIPAQUE) 350 mg/mL solution 230 Given 07/03/2020 1:47 PM [employer] 230 mL mL 230 mL, Intra-arterial, One time, 1 dose, Fri07/03/20 at 1350, 300 mL lidocaine PF (XYLOCAINE-MPF) 1 % preservative Given 1:42 PM [employer] 5 mL free injection solution 0-40 mL 0-40 mL, Subcutaneous, Administer in [employer], 1 dose, Fri07/03/20 at 1250, 60 mL, Given by provider in CCL. Do not give on the floor., Given 07/03/2020 12:56 PM [employer] 10 mL nitroglycerin (NITROSTAT) sublingual tablet Given 06/18 3:45 AM [employer] 0.4 mg 0.4 mg 0.4 mg, Sublingual, Every five minutes prn, Starting 07/02/20 at 2019, Until Fri07/03/20 at 1410, chest pain, At onset of chest pain, dissolve one tablet under tongue. May repeat every 5 minutes for 3 doses. Do not crush or chew., sodium chloride 0.9% IV solution New Bag 07/03/2020 2:24 PM [employer] 150 mL/hr IV, at 150 mL/hr, Continuous, Starting 07/03/20 at 1455, Until Fri07/03/20 at 1436, 1,000 mL, Post-Procedure (Cath) sodium chloride 0.9% IV solution Rate Change 07/03/2020 3:56 PM [employer] 75 mL/hr IV, at 75 mL/hr, Continuous, Starting Fri07/03/20 at 1540, Until Fri07/03/20 at 2139, 1,000 mL documented in this encounter
== END 2020-07-02 17:25 ==
LOC: KA.ED 09:36
DX: I24.9 Acute ischemic heart disease, unspecified (principal); I71.4 Abdominal aortic aneurysm, without rupture; M06.9 Rheumatoid arthritis, unspecified; M25.551 Pain in right hip; G89.29 Other chronic pain; R79.89 Other specified abnormal findings of blood chemistry; I25.2 Old myocardial infarction; I25.10 Atherosclerotic heart disease of native coronary artery without angina pectoris; Z95.1 Presence of aortocoronary bypass graft; Z88.8 Allergy status to other drugs, medicaments and biological substances; Z79.899 Other long term (current) drug therapy; Z87.891 Personal history of nicotine dependence
CPT/HCPCS: 36415; 71045; 71260; 80053; 82550; 82553; 83880; 84484; 85025; 85379; 85730; 93005; 96365; 96366; 96368; 99284; 99285-25; A9270-GY; J1644; Q9967